=== PATIENT | male | born 1965 | race Asian ===

== ENCOUNTER 2018-06-26 19:16 | Emergency (ER) | payer MEDICAID ==
[~2018-06-26] VITALS: Ht 162.6 cm; Wt 59.0 kg
[~2018-06-26 19:16] MED LIST: LISI-186 PO
[2018-06-26] MEDS ORDERED: SODIUM CHLORIDE 0.9% 1,000 ML IV ONE (20:57)
[2018-06-26 21:53] LABS: BASOPHILS % 0.7 % (0.0-2.0); EOSINOPHILS % 6.6 % (0.0-5.0); HEMATOCRIT. 36.1 % (42.0-52.0); HEMOGLOBIN. 12.1 g/dL (14.0-18.0); MEAN CORPUSCULAR HEMOGLOBIN 32.4 pg (28.0-32.0); MEAN CORPUSCULAR VOLUME 97.1 fL (80.0-94.0); MEAN PLATELET VOLUME 7.5 fl (7.4-10.4); MONOCYTES % 5.9 % (2.0-8.0); NEUTROPHILS % 42.8 % (40.0-76.0); PLATELET 649 x1000/uL (130-400); RED BLOOD CELL COUNT 3.72 mill/uL (4.7-6.1); RED CELL DISTRIBUTION WIDTH 17.5 % (11.6-14.6)
[2018-06-26 21:58] LABS: CHLORIDE 110 mEq/L (98-107)
[2018-06-26 21:59] LABS: INR 1.1; PARTIAL THROMBOPLASTIN TIME 29.4 sec (23.4-31.0); PROTHROMBIN TIME 11.4 sec (9.1-11.1)
[2018-06-26 22:42] LABS: METHADONE URINE SCREEN NEGATIVE (NEGATIVE); OPIATES URINE SCREEN NEGATIVE (NEGATIVE); PHENCYCLIDINE URINE SCREEN NEGATIVE (NEGATIVE)
[2018-06-26 22:43] LABS: *AMPHETAMINES SCREEN URINE NEGATIVE (NEGATIVE); *BARBITURATES SCREEN URINE NEGATIVE (NEGATIVE); *BENZODIAZEPINES SCREEN URINE NEGATIVE (NEGATIVE); *COCAINE SCREEN URINE NEGATIVE (NEGATIVE); CANNABINOID URINE SCREEN NEGATIVE (NEGATIVE)
[2018-06-27 00:56] VITALS: BP 115/79
== END 2018-06-27 01:01 | disposition home or self-care (01) ==
LOC: ER 19:16
DX: J20.9 Acute bronchitis, unspecified (principal); I12.9 Hypertensive chronic kidney disease with stage 1 through stage 4 chronic kidney disease, or unspecified chronic kidney disease; N18.9 Chronic kidney disease, unspecified; E87.8 Other disorders of electrolyte and fluid balance, not elsewhere classified; D64.9 Anemia, unspecified; E46 Unspecified protein-calorie malnutrition; Z68.22 Body mass index [BMI] 22.0-22.9, adult
CPT/HCPCS: 36415; 71045; 80053; 80305; 83880; 84484; 85025; 85610; 85730; 93005; 96360; 96361; 99285; J7030; Z7610

== ENCOUNTER 2018-07-09 09:21 | Emergency (ER) | payer MEDICAID ==
[~2018-07-09] VITALS: Ht 172.7 cm; Wt 68.0 kg
[2018-07-09] MEDS ORDERED: KETOROLAC 30MG/ML VIAL IV STA (10:26)
[2018-07-09 11:42] VITALS: BP 129/88
== END 2018-07-09 12:04 | disposition home or self-care (01) ==
LOC: ER 10:55
DX: S20.212A Contusion of left front wall of thorax, initial encounter (principal); I10 Essential (primary) hypertension; F12.10 Cannabis abuse, uncomplicated; Y04.0XXA Assault by unarmed brawl or fight, initial encounter; Y93.89 Activity, other specified; Y92.89 Other specified places as the place of occurrence of the external cause
CPT/HCPCS: 71045; 93005; 96374; 99284; J1885; Z7610

== ENCOUNTER 2018-07-10 09:29 | Emergency (ER) | payer MEDICAID ==
[~2018-07-10] VITALS: Ht 172.7 cm; Wt 73.0 kg
[2018-07-10] MEDS ORDERED: SODIUM CHLORIDE 0.9% 1,000 ML IV ONE (10:02)
[2018-07-10] MEDS ORDERED: METHYLPREDNISOLONE SOD SUCC 125 MG/2 ML VIAL IV STA (10:02)
[2018-07-10] MEDS ORDERED: LEVOFLOXACIN 750MG PREMIX 150 ML IV ONE (10:15)
[2018-07-10] MEDS ORDERED: KETOROLAC 30MG/ML VIAL IV ONE (10:15)
[2018-07-10] MEDS ORDERED: IPRATROPIUM/ALBUTEROL 0.5-3(2.5)MG/3ML NEB HHN ONE (10:15)
[2018-07-10 10:21] LABS: BASOPHILS % 0.9 % (0.0-2.0); EOSINOPHILS % 2.1 % (0.0-5.0); HEMATOCRIT. 35.2 % (42.0-52.0); LYMPHOCYTES % 12.4 % (20.0-50.0); MEAN CORPUSCULAR HEMOGLOBIN 33.2 pg (28.0-32.0); MEAN CORPUSCULAR VOLUME 97.5 fL (80.0-94.0); MEAN PLATELET VOLUME 8.6 fl (7.4-10.4); MONOCYTES % 4.6 % (2.0-8.0); PLATELET 199 x1000/uL (130-400); RED BLOOD CELL COUNT 3.61 mill/uL (4.7-6.1); RED CELL DISTRIBUTION WIDTH 17.6 % (11.6-14.6)
[2018-07-10 10:29] LABS: PARTIAL THROMBOPLASTIN TIME 27.6 sec (23.4-31.0); PROTHROMBIN TIME 10.1 sec (9.1-11.1)
[2018-07-10 11:12] LABS: CHLORIDE 104 mEq/L (98-107)
[2018-07-10 11:22] LABS: ETHANOL BLOOD 288 mg/dL
[2018-07-10 12:45] VITALS: BP 131/89
== END 2018-07-10 12:48 | disposition home or self-care (01) ==
LOC: ER 09:56
DX: J40 Bronchitis, not specified as acute or chronic (principal); I10 Essential (primary) hypertension; F17.200 Nicotine dependence, unspecified, uncomplicated
CPT/HCPCS: 36415; 70450; 71045; 80053; 83880; 84484; 85025; 85610; 85730; 93005; 94640; 96365; 96366; 96375; 99285; G0482; J1885; J1956; J2930; J7030; J7620; Z7610

== ENCOUNTER 2018-08-03 07:25 | Emergency (ER) | payer MEDICAID ==
[~2018-08-03] VITALS: Ht 172.7 cm; Wt 76.2 kg
[2018-08-03 07:44] VITALS: BP 161/99
== END 2018-08-03 08:22 | disposition left against medical advice (07) ==
LOC: ER 07:25
DX: R42 Dizziness and giddiness (principal)
CPT/HCPCS: 99283

== ENCOUNTER 2018-08-18 17:58 | Emergency (ER) | payer MEDICAID ==
[~2018-08-18] VITALS: Ht 172.7 cm; Wt 76.5 kg
[2018-08-18 19:44] LABS: BASOPHILS % 0.6 % (0.0-2.0); EOSINOPHILS % 7.2 % (0.0-5.0); HEMATOCRIT. 37.8 % (42.0-52.0); HEMOGLOBIN. 12.8 g/dL (14.0-18.0); LYMPHOCYTES % 28.1 % (20.0-50.0); MEAN CORPUSCULAR HEMOGLOBIN 34.3 pg (28.0-32.0); MEAN CORPUSCULAR VOLUME 101.3 fL (80.0-94.0); MEAN PLATELET VOLUME 8.4 fl (7.4-10.4); NEUTROPHILS % 56.1 % (40.0-76.0); PLATELET 142 x1000/uL (130-400); RED BLOOD CELL COUNT 3.73 mill/uL (4.7-6.1); RED CELL DISTRIBUTION WIDTH 14.6 % (11.6-14.6)
[2018-08-18 19:49] LABS: CHLORIDE 100 mEq/L (98-107)
[2018-08-18 20:28] LABS: ETHANOL BLOOD 411 mg/dL
[2018-08-19 06:06] VITALS: BP 109/75
== END 2018-08-19 06:48 | disposition home or self-care (01) ==
LOC: ER 18:20
DX: M25.561 Pain in right knee (principal); M06.9 Rheumatoid arthritis, unspecified; R42 Dizziness and giddiness; F17.200 Nicotine dependence, unspecified, uncomplicated; Z79.899 Other long term (current) drug therapy; W01.0XXA Fall on same level from slipping, tripping and stumbling without subsequent striking against object, initial encounter; Y93.89 Activity, other specified; Y92.89 Other specified places as the place of occurrence of the external cause; Y99.8 Other external cause status
CPT/HCPCS: 36415; 71045; 73562; 80053; 83880; 84484; 85025; 99284; 99406; G0482

== ENCOUNTER 2019-02-25 20:16 | Inpatient (IN) | payer MEDICAID ==
[~2019-02-25] VITALS: Ht 165.1 cm; Wt 69.9 kg
[2019-02-26] VITALS (65 sets, daily range): BP systolic 77–153; BP diastolic 42–132
[2019-02-26] MEDS ORDERED: TETANUS, DIPHTHERIA, PERTUSSIS VAC/PF 0.5ML (>7YR OLD) IM ONE
[2019-02-26 00:50] LABS: CLARITY URINE TURBID (CLEAR); COLOR URINE DARK YELLOW (YELLOW); KETONES URINE TRACE (NEGATIVE); LEUKOCYTE ESTERASE URINE NEGATIVE (NEGATIVE); NITRITE URINE NEGATIVE (NEGATIVE); OCCULT BLOOD URINE 2+ (NEGATIVE); PROTEIN URINE 2+ (NEGATIVE); SPECIFIC GRAVITY URINE 1.015 (1.005-1.030)
[2019-02-26 01:00] LABS: *AMPHETAMINES SCREEN URINE NEGATIVE (NEGATIVE); *BARBITURATES SCREEN URINE NEGATIVE (NEGATIVE); *BENZODIAZEPINES SCREEN URINE NEGATIVE (NEGATIVE); *COCAINE SCREEN URINE NEGATIVE (NEGATIVE); METHADONE URINE SCREEN NEGATIVE (NEGATIVE); OPIATES URINE SCREEN NEGATIVE (NEGATIVE); PHENCYCLIDINE URINE SCREEN NEGATIVE (NEGATIVE)
[2019-02-26 01:01] LABS: CANNABINOID URINE SCREEN NEGATIVE (NEGATIVE)
[2019-02-26 01:05] LABS: CHLORIDE 98 mEq/L (98-107)
[2019-02-26 01:09] LABS: ETHANOL BLOOD 208 mg/dL
[2019-02-26] MEDS ORDERED: KCL 20MEQ/100ML PREMIX 100 ML IV ONE (01:15)
[2019-02-26] MEDS ORDERED: KCL 20MEQ/100ML PREMIX 100 ML IV NR ×2 (01:15→04:00)
[2019-02-26] MEDS ORDERED: SODIUM BICARBONATE 8.4% 1 MEQ/ML 50ML SYR IV NR (01:15)
[2019-02-26] MEDS ORDERED: SODIUM CHLORIDE 0.9% 1,000 ML IV ONE (01:15)
[2019-02-26] MEDS ORDERED: SODIUM CHLORIDE 0.9% 1,000 ML IV NR ×2 (01:15→01:30)
[2019-02-26] MEDS ORDERED: CEFEPIME 1,000 MG in DEXTROSE 5% WATER 50 ML IV NR (01:29)
[2019-02-26] MEDS ORDERED: VANCOMYCIN 1 G PREMIX 200 ML IV NR (01:30)
[2019-02-26] MEDS ORDERED: CALCIUM CHLORIDE 1,000 MG in DEXT 5% WATER 90 ML IV NR (01:30)
[2019-02-26] MEDS ORDERED: SODIUM BICARBONATE 150 MEQ in SODIUM CHLORIDE 0.45% 1,000 ML IV SCH (01:45)
[2019-02-26 02:38] LABS: HEMATOCRIT. 25.7 % (42.0-52.0); HEMOGLOBIN. 8.1 g/dL (14.0-18.0); MEAN CORPUSCULAR HEMOGLOBIN 32.3 pg (28.0-32.0); MEAN CORPUSCULAR VOLUME 101.8 fL (80.0-94.0); MEAN PLATELET VOLUME 9.3 fl (7.4-10.4); RED BLOOD CELL COUNT 2.52 mill/uL (4.7-6.1); RED CELL DISTRIBUTION WIDTH 20.8 % (11.6-14.6)
[2019-02-26 02:41] LABS: PLATELET 14 x1000/uL (130-400)
[2019-02-26 03:15] LABS: PLATELET ESTIMATE MARKEDLY DECREASED
[2019-02-26 03:55] LABS: BG BASE EXCESS -25.5 mmol/L (-2.0-2.0); BG CARBOXYHEMOGLOBIN 0.3 % (0.5-1.5); BG DEOXYHEMOGLOBIN 2.3 % (0.0-5.0); BG FRACTION INSPIRED OXYGEN 21; BG HCO3 ACT 3.7 mmol/L (22.0-26.0); BG METHEMOGLOBIN 0.3 % (0.0-1.5); BG OXYGEN SATURATION 97.7 % (92.0-98.5); BG OXYHEMOGLOBIN 97.1 % (94.0-97.0); BG PCO2 15.1 mmHg (35.0-45.0); BG PH 7.005 (7.350-7.450); BG PO2 140.4 mmHg (75.0-100.0); BG SAMPLE SITE RIGHT RADIAL; BG TOTAL HEMOGLOBIN 8.5 g/dL (12.0-18.0); BG VENT MODE ROOM AIR
[2019-02-26] MEDS ORDERED: NOREPINEPHRINE 4 MG in DEXT 5% WATER 246 ML IV ONE (04:15)
[2019-02-26] MEDS ORDERED: HYDROCORTISONE SOD SUCCINATE 100 MG/2 ML VIAL IV NR (04:30)
[2019-02-26] MEDS ORDERED: NOREPINEPHRINE 4MG/250ML PMX 250 ML IV PRN (04:30)
[2019-02-26 07:13] LABS: D-DIMER 0.67 mg/L FEU (<0.50); INR 2.5; PARTIAL THROMBOPLASTIN TIME 62.3 sec (23.4-31.0); PROTHROMBIN TIME 24.8 sec (9.6-11.0)
[2019-02-26] MEDS ORDERED: ONDANSETRON HCL 4MG/2ML INJ IV PRN (07:45)
[2019-02-26] MEDS ORDERED: SODIUM BICARBONATE 8.4% 1 MEQ/ML 50ML SYR IV SCH (07:45)
[2019-02-26] MEDS ORDERED: CALCIUM GLUCONATE 100MG/ML 10ML VIAL IV ONE ×2 (07:45→19:00)
[2019-02-26] MEDS ORDERED: THIAMINE HCL 100MG TABLET PO SCH (08:00)
[2019-02-26 08:37] LABS: CHLORIDE 103 mEq/L (98-107)
[2019-02-26 08:42] LABS: HEMATOCRIT. 28.4 % (42.0-52.0); HEMOGLOBIN. 9.5 g/dL (14.0-18.0); MEAN CORPUSCULAR HEMOGLOBIN 31.9 pg (28.0-32.0); MEAN CORPUSCULAR VOLUME 95.6 fL (80.0-94.0); MEAN PLATELET VOLUME 9.5 fl (7.4-10.4); RED BLOOD CELL COUNT 2.97 mill/uL (4.7-6.1); RED CELL DISTRIBUTION WIDTH 19.8 % (11.6-14.6)
[2019-02-26] MEDS ORDERED: CALCIUM GLUCONATE 1000 MG in DEXTROSE 5% WATER 100 ML IV SCH ×2 (09:00→20:00)
[2019-02-26] MEDS ORDERED: FOLIC ACID 1MG TABLET PO SCH (09:00)
[2019-02-26] MEDS ORDERED: FAMOTIDINE 20MG/2ML VIAL IV SCH (09:00)
[2019-02-26] MEDS ORDERED: LORAZEPAM 2MG/ML CPJ IV PRN (09:15)
[2019-02-26 09:17] LABS: PLATELET 12 x1000/uL (130-400)
[2019-02-26] MEDS: POTASSIUM CHLORIDE 20MEQ TABLET SR PO SCH ×2 (09:25→16:45)
[2019-02-26] MEDS: SODIUM BICARBONATE 150 MEQ in DEXTROSE 5% WATER 850 ML IV SCH ×2 (09:51→20:03)
[2019-02-26] MEDS ORDERED: PHYTONADIONE 10 MG/10 ML ORALSYR PO ONE (10:00)
[2019-02-26] MEDS: CEFTRIAXONE 1 G PREMIX 50 ML IV SCH (10:05)
[2019-02-26 10:09] LABS: BG BASE EXCESS -18.5 mmol/L (-2.0-2.0); BG CARBOXYHEMOGLOBIN 0.1 % (0.5-1.5); BG FRACTION INSPIRED OXYGEN 21; BG HCO3 ACT 6.9 mmol/L (22.0-26.0); BG METHEMOGLOBIN 0.5 % (0.0-1.5); BG OXYHEMOGLOBIN 97.4 % (94.0-97.0); BG PCO2 16.4 mmHg (35.0-45.0); BG PH 7.242 (7.350-7.450); BG PO2 123.5 mmHg (75.0-100.0); BG SAMPLE SITE LEFT RADIAL; BG TOTAL HEMOGLOBIN 8.6 g/dL (12.0-18.0); BG VENT MODE ROOM AIR
[2019-02-26] MEDS ORDERED: FOLIC ACID 1 MG, THIAMINE HCL 100 MG, MVI, ADULT NO.1 10 ML in DEXT 5%/0.45% NACL 1000M... IV SCH ×4 (11:00)
[2019-02-26] MEDS ORDERED: VANCOMYCIN 500 MG PREMIX 100 ML IV SCH (11:00)
[2019-02-26 12:32] LABS: NUCLEATED RED BLOOD CELLS 1 /100 WBC; PLATELET ESTIMATE MARKEDLY DECREASED
[2019-02-26] MEDS ORDERED: DEXTROSE 50% WATER 50ML SYRINGE IV PRN ×2 (13:45)
[2019-02-26] MEDS ORDERED: DIATR MEGLU/DIATRIZOATE SOLN 30ML PO SCH (14:00)
[2019-02-26 14:19] LABS: BG BASE EXCESS -14.4 mmol/L (-2.0-2.0); BG CARBOXYHEMOGLOBIN 0.1 % (0.5-1.5); BG DEOXYHEMOGLOBIN 3.2 % (0.0-5.0); BG FRACTION INSPIRED OXYGEN 21; BG HCO3 ACT 9.7 mmol/L (22.0-26.0); BG METHEMOGLOBIN 0.4 % (0.0-1.5); BG OXYGEN SATURATION 96.8 % (92.0-98.5); BG OXYHEMOGLOBIN 96.3 % (94.0-97.0); BG PCO2 18.1 mmHg (35.0-45.0); BG PH 7.346 (7.350-7.450); BG PO2 96.5 mmHg (75.0-100.0); BG SAMPLE SITE RIGHT BRACHIAL; BG TOTAL HEMOGLOBIN 7.9 g/dL (12.0-18.0); BG VENT MODE ROOM AIR
[2019-02-26] MEDS: THIAMINE HCL 100MG TABLET PO SCH (15:18)
[2019-02-26] MEDS: MULTIVITAMINS,THER W-MINERALS TABLET PO SCH (15:18)
[2019-02-26] MEDS: CHLORDIAZEPOXIDE 5 MG CAPSULE PO SCH ×2 (15:18→22:09)
[2019-02-26] MEDS: FOLIC ACID 1MG TABLET PO SCH (15:18)
[2019-02-26] MEDS ORDERED: MAGNESIUM SULFATE 3 GM in DEXT 5% WATER 96 ML IV NR (16:00)
[2019-02-26 16:06] LABS: HEPATITIS B SURFACE ANTIGEN NEGATIVE
[2019-02-26 16:35] LABS: HEPATITIS A AB IGM NEGATIVE (NEGATIVE)
[2019-02-26] MEDS ORDERED: POTASSIUM CHLORIDE 20MEQ TABLET SR PO NR ×2 (19:00→23:00)
[2019-02-26] MEDS: NOREPINEPHRINE 4 MG in DEXT 5% WATER 246 ML IV PRN (20:31)
[2019-02-26] MEDS ORDERED: MAGNESIUM 2 G PREMIX 50 ML IV SCH (23:00)
[2019-02-27] VITALS (91 sets, daily range): BP systolic 62–138; BP diastolic 25–105
[2019-02-27] MEDS: CHLORDIAZEPOXIDE 5 MG CAPSULE PO SCH ×3 (05:49→21:27)
[2019-02-27] MEDS: SODIUM BICARBONATE 150 MEQ in DEXTROSE 5% WATER 850 ML IV SCH (05:49)
[2019-02-27] MEDS: NOREPINEPHRINE 4 MG in DEXT 5% WATER 246 ML IV PRN ×2 (05:49→14:26)
[2019-02-27 05:51] LABS: HEMATOCRIT. 21.5 % (42.0-52.0); HEMOGLOBIN. 7.6 g/dL (14.0-18.0); MEAN CORPUSCULAR HEMOGLOBIN 32.7 pg (28.0-32.0); MEAN PLATELET VOLUME 8.7 fl (7.4-10.4); RED BLOOD CELL COUNT 2.34 mill/uL (4.7-6.1); RED CELL DISTRIBUTION WIDTH 18.4 % (11.6-14.6)
[2019-02-27] MEDS ORDERED: POTASSIUM CHLORIDE 20MEQ TABLET SR PO NR (07:00)
[2019-02-27 07:03] LABS: PLATELET 9 x1000/uL (130-400)
[2019-02-27] MEDS ORDERED: DIPHENOXYLATE/ATROPINE 2.5/0.025MG TABLET PO NR (08:00)
[2019-02-27 08:02] LABS: BG BASE EXCESS -2.1 mmol/L (-2.0-2.0); BG CARBOXYHEMOGLOBIN 0.9 % (0.5-1.5); BG DEOXYHEMOGLOBIN 4.9 % (0.0-5.0); BG FRACTION INSPIRED OXYGEN 21; BG HCO3 ACT 20.9 mmol/L (22.0-26.0); BG METHEMOGLOBIN 0.5 % (0.0-1.5); BG OXYHEMOGLOBIN 93.7 % (94.0-97.0); BG PCO2 28.2 mmHg (35.0-45.0); BG PH 7.487 (7.350-7.450); BG PO2 73.1 mmHg (75.0-100.0); BG SAMPLE SITE RIGHT BRACHIAL; BG TOTAL HEMOGLOBIN 7.7 g/dL (12.0-18.0); BG VENT MODE ROOM AIR
[2019-02-27] MEDS: FOLIC ACID 1MG TABLET PO SCH (08:09)
[2019-02-27] MEDS: MULTIVITAMINS,THER W-MINERALS TABLET PO SCH (08:09)
[2019-02-27] MEDS: THIAMINE HCL 100MG TABLET PO SCH (08:09)
[2019-02-27] MEDS: CEFTRIAXONE 1 G PREMIX 50 ML IV SCH (08:12)
[2019-02-27 08:23] LABS: PLATELET ESTIMATE MARKEDLY DECREASED
[2019-02-27] MEDS ORDERED: POTASSIUM CHLORIDE 20MEQ/PACKET PO NR (08:45)
[2019-02-27] MEDS ORDERED: MAGNESIUM 4 G PREMIX 100 ML IV ONE (08:45)
[2019-02-27] MEDS: POTASSIUM CHLORIDE 20MEQ TABLET SR PO SCH ×2 (09:36→16:21)
[2019-02-27] MEDS: POTASSIUM CHLORIDE IV SCH ×2 (10:23→21:11)
[2019-02-27] MEDS: NACL IV SCH ×2 (10:23→21:11)
[2019-02-27] MEDS: DEXT IV SCH ×2 (10:23→21:11)
[2019-02-27 10:55] LABS: INR 1.7; PROTHROMBIN TIME 17.6 sec (9.6-11.0)
[2019-02-27 11:08] LABS: BETA HYDROXYBUTYRATE < 0.1 mMol/L (0.0-0.3)
[2019-02-27 11:09] LABS: PHOSPHORUS 0.4 mg/dL (2.5-4.9)
[2019-02-27] MEDS ORDERED: METRONIDAZOLE 500 MG PREMIX 100 ML IV SCH (12:30)
[2019-02-27] MEDS ORDERED: POTASSIUM PHOS,M-BASIC-D-BASIC 30 MMOL in SODIUM CHLORIDE 0.9% 500 ML IV SCH (14:00)
[2019-02-27] MEDS ORDERED: VANCOMYCIN 750 MG PREMIX 150 ML IV NR (18:00)
[2019-02-27] MEDS ORDERED: CALCIUM GLUCONATE 1,000 MG in DEXT 5% WATER 90 ML IV NR (20:00)
[2019-02-27] MEDS: METRONIDAZOLE 500MG TABLET PO SCH (21:31)
[2019-02-28] VITALS (103 sets, daily range): BP systolic 76–144; BP diastolic 20–90
[2019-02-28] MEDS: METRONIDAZOLE 500MG TABLET PO SCH ×3 (05:21→22:06)
[2019-02-28] MEDS: POTASSIUM CHLORIDE IV SCH (05:21)
[2019-02-28] MEDS: DEXT IV SCH (05:21)
[2019-02-28] MEDS: NACL IV SCH (05:21)
[2019-02-28] MEDS: CHLORDIAZEPOXIDE 5 MG CAPSULE PO SCH ×3 (05:21→22:06)
[2019-02-28] MEDS: NOREPINEPHRINE 4 MG in DEXT 5% WATER 246 ML IV PRN (05:26)
[2019-02-28 05:46] LABS: MEAN CORPUSCULAR HEMOGLOBIN 31.9 pg (28.0-32.0); RED BLOOD CELL COUNT 2.01 mill/uL (4.7-6.1)
[2019-02-28 06:19] LABS: CHLORIDE 110 mEq/L (98-107)
[2019-02-28 06:37] LABS: HEMOGLOBIN. 6.4 g/dL (14.0-18.0)
[2019-02-28 06:39] LABS: HEMATOCRIT. 18.3 % (42.0-52.0); PLATELET 33 x1000/uL (130-400)
[2019-02-28 06:54] LABS: PHOSPHORUS 0.7 mg/dL (2.5-4.9)
[2019-02-28] MEDS ORDERED: CALCIUM GLUCONATE 100MG/ML 10ML VIAL IV ONE (07:15)
[2019-02-28] MEDS ORDERED: POTASSIUM CHLORIDE 20MEQ TABLET SR PO NR (08:00)
[2019-02-28] MEDS ORDERED: CALCIUM GLUCONATE 1000 MG in DEXTROSE 5% WATER 100 ML IV SCH (08:00)
[2019-02-28] MEDS: CHLORDIAZEPOXIDE 25MG CAPSULE PO PRN ×2 (08:15→15:05)
[2019-02-28] MEDS ORDERED: MAGNESIUM 4 G PREMIX 100 ML IV NR (08:30)
[2019-02-28] MEDS ORDERED: POTASSIUM PHOS M BASIC D BASIC IV SCH (09:00)
[2019-02-28] MEDS ORDERED: WATER IV SCH (09:00)
[2019-02-28] MEDS ORDERED: DEXT 5%/0.45% NACL KCL 40MEQ/L 1,000 ML IV ONE (09:00)
[2019-02-28] MEDS ORDERED: DEXT 5% IV SCH (09:00)
[2019-02-28] MEDS ORDERED: POTASSIUM PHOS,M-BASIC-D-BASIC 20 MMOL in DEXT 5% WATER 243.3333 ML IV SCH (09:00)
[2019-02-28] MEDS: CEFTRIAXONE 1 G PREMIX 50 ML IV SCH (09:09)
[2019-02-28] MEDS: MULTIVITAMINS,THER W-MINERALS TABLET PO SCH (09:09)
[2019-02-28] MEDS: FOLIC ACID 1MG TABLET PO SCH (09:09)
[2019-02-28] MEDS: THIAMINE HCL 100MG TABLET PO SCH (09:09)
[2019-02-28] MEDS: CHOLECALCIFEROL (D3) 1000 UNIT TABLET PO SCH (09:10)
[2019-02-28] MEDS: CALCIUM CARBONATE 500MG TABLET CHEW PO SCH (09:10)
[2019-02-28] MEDS: ALLOPURINOL 100 MG TABLET PO SCH (10:27)
[2019-02-28] MEDS ORDERED: LEVOFLOXACIN 500MG PREMIX 100 ML IV SCH (11:00)
[2019-02-28 11:38] LABS: PLATELET ESTIMATE MARKEDLY DECREASED
[2019-02-28] MEDS: POTASSIUM CHLORIDE 20MEQ TABLET SR PO SCH ×2 (12:22→17:36)
[2019-02-28] MEDS: NOREPINEPHRINE 8 MG in DEXT 5% WATER 242 ML IV PRN (12:33)
[2019-02-28 13:15] LABS: HIV SCREEN 4G Non Reactive (Non Reactive)
[2019-02-28] MEDS: DIPHENOXYLATE/ATROPINE 2.5/0.025MG TABLET PO PRN ×2 (17:36→22:10)
[2019-02-28] MEDS ORDERED: VANCOMYCIN 750 MG PREMIX 150 ML IV NR (18:00)
[2019-03-01] VITALS (78 sets, daily range): BP systolic 73–134; BP diastolic 41–80
[2019-03-01] MEDS: VANCOMYCIN HCL 1000 MG/20 ML ORAL PO SCH ×4 (00:46→18:52)
[2019-03-01] MEDS ORDERED: DEXTROSE 50% WATER 50ML SYRINGE IV PRN (05:00)
[2019-03-01 06:11] LABS: BASOPHILS % 0.3 % (0.0-2.0); EOSINOPHILS % 1.3 % (0.0-5.0); HEMATOCRIT. 22.3 % (42.0-52.0); HEMOGLOBIN. 7.7 g/dL (14.0-18.0); LYMPHOCYTES % 18.2 % (20.0-50.0); MEAN CORPUSCULAR HEMOGLOBIN 31.8 pg (28.0-32.0); MEAN CORPUSCULAR VOLUME 91.6 fL (80.0-94.0); MEAN PLATELET VOLUME 8.9 fl (7.4-10.4); MONOCYTES % 6.8 % (2.0-8.0); NEUTROPHILS % 73.4 % (40.0-76.0); RED BLOOD CELL COUNT 2.44 mill/uL (4.7-6.1); RED CELL DISTRIBUTION WIDTH 18.8 % (11.6-14.6)
[2019-03-01 06:25] LABS: CHLORIDE 110 mEq/L (98-107)
[2019-03-01] MEDS: BLOOD SUGAR DIAGNOSTIC STRIP TEST SCH ×4 (06:27→21:52)
[2019-03-01] MEDS: METRONIDAZOLE 500MG TABLET PO SCH ×3 (06:27→21:51)
[2019-03-01 06:36] LABS: PHOSPHORUS 1.5 mg/dL (2.5-4.9)
[2019-03-01 06:39] LABS: PLATELET 15 x1000/uL (130-400)
[2019-03-01 07:30] LABS: PLATELET ESTIMATE MARKEDLY DECREASED
[2019-03-01] MEDS ORDERED: CALCIUM GLUCONATE 100MG/ML 10ML VIAL IV ONE (08:15)
[2019-03-01] MEDS: MIDODRINE HCL 5MG TABLET PO SCH ×3 (08:46→21:52)
[2019-03-01] MEDS ORDERED: CALCIUM GLUCONATE 1,000 MG in DEXT 5% WATER 100 ML IV SCH (09:30)
[2019-03-01] MEDS: THIAMINE HCL 100MG TABLET PO SCH (09:37)
[2019-03-01] MEDS: CEFTRIAXONE 1 G PREMIX 50 ML IV SCH (09:37)
[2019-03-01] MEDS: CHOLECALCIFEROL (D3) 1000 UNIT TABLET PO SCH (09:37)
[2019-03-01] MEDS: FOLIC ACID 1MG TABLET PO SCH (09:38)
[2019-03-01] MEDS: LACTOBACILLUS GG CAPSULE PO SCH (09:38)
[2019-03-01] MEDS: ALLOPURINOL 100 MG TABLET PO SCH (09:38)
[2019-03-01] MEDS: CALCIUM CARBONATE 500MG TABLET CHEW PO SCH (09:38)
[2019-03-01] MEDS: POTASSIUM CHLORIDE INJ 40 MEQ in SODIUM CHLORIDE 0.45% 1,000 ML IV SCH (09:51)
[2019-03-01] MEDS ORDERED: MAGNESIUM 4 G PREMIX 100 ML IV SCH (10:00)
[2019-03-01] MEDS ORDERED: POTASSIUM PHOS,M-BASIC-D-BASIC 30 MMOL in SODIUM CHLORIDE 0.9% 500 ML IV SCH (10:00)
[2019-03-01] MEDS: MULTIVITAMINS,THER W-MINERALS TABLET PO SCH (10:52)
[2019-03-01] MEDS ORDERED: LEVOFLOXACIN 250MG PREMIX 50 ML IV SCH (11:00)
[2019-03-01] MEDS ORDERED: ACETAMINOPHEN 650MG/20.3ML UDC PO PRN (16:00)
[2019-03-02] VITALS (94 sets, daily range): BP systolic 76–159; BP diastolic 36–99
[2019-03-02] MEDS: POTASSIUM CHLORIDE INJ 40 MEQ in SODIUM CHLORIDE 0.45% 1,000 ML IV SCH (02:56)
[2019-03-02] MEDS: NOREPINEPHRINE 8 MG in DEXT 5% WATER 242 ML IV PRN (03:40)
[2019-03-02] MEDS: BLOOD SUGAR DIAGNOSTIC STRIP TEST SCH ×4 (05:46→20:53)
[2019-03-02] MEDS: MIDODRINE HCL 5MG TABLET PO SCH ×3 (05:47→20:53)
[2019-03-02] MEDS: METRONIDAZOLE 500MG TABLET PO SCH ×3 (05:47→20:53)
[2019-03-02] MEDS: VANCOMYCIN HCL 1000 MG/20 ML ORAL PO SCH ×4 (05:48→18:45)
[2019-03-02 05:52] LABS: HEMATOCRIT. 22.7 % (42.0-52.0); HEMOGLOBIN. 7.9 g/dL (14.0-18.0); MEAN CORPUSCULAR HEMOGLOBIN 31.8 pg (28.0-32.0); MEAN CORPUSCULAR VOLUME 91.8 fL (80.0-94.0); MEAN PLATELET VOLUME 8.4 fl (7.4-10.4); RED BLOOD CELL COUNT 2.47 mill/uL (4.7-6.1); RED CELL DISTRIBUTION WIDTH 18.1 % (11.6-14.6)
[2019-03-02 06:25] LABS: PHOSPHORUS 2.1 mg/dL (2.5-4.9)
[2019-03-02 06:35] LABS: PLATELET 18 x1000/uL (130-400)
[2019-03-02 08:33] LABS: PLATELET ESTIMATE MARKEDLY DECREASED
[2019-03-02] MEDS: FOLIC ACID 1MG TABLET PO SCH (08:59)
[2019-03-02] MEDS: CALCIUM CARBONATE 500MG TABLET CHEW PO SCH (08:59)
[2019-03-02] MEDS: LACTOBACILLUS GG CAPSULE PO SCH (08:59)
[2019-03-02] MEDS: ALLOPURINOL 100 MG TABLET PO SCH (08:59)
[2019-03-02] MEDS: THIAMINE HCL 100MG TABLET PO SCH (09:00)
[2019-03-02] MEDS: CHOLECALCIFEROL (D3) 1000 UNIT TABLET PO SCH (09:00)
[2019-03-02] MEDS: MULTIVITAMINS,THER W-MINERALS TABLET PO SCH (09:00)
[2019-03-02] MEDS: POTASSIUM ACETATE IV SCH (10:41)
[2019-03-02] MEDS: SODIUM CHLORIDE 0.45% IV SCH (10:41)
[2019-03-02] MEDS ORDERED: CALCIUM GLUCONATE 1,000 MG in DEXT 5% WATER 90 ML IV NR (11:00)
[2019-03-02] MEDS ORDERED: POTASSIUM PHOS,M-BASIC-D-BASIC 20 MMOL in DEXT 5% WATER 243.3333 ML IV ONE (11:00)
[2019-03-02] MEDS ORDERED: DIPHENOXYLATE/ATROPINE 2.5/0.025MG TABLET PO PRN (21:15)
[2019-03-03] VITALS (97 sets, daily range): BP systolic 75–161; BP diastolic 41–98
[2019-03-03] MEDS: VANCOMYCIN HCL 1000 MG/20 ML ORAL PO SCH ×5 (00:55→23:56)
[2019-03-03] MEDS: NOREPINEPHRINE 8 MG in DEXT 5% WATER 242 ML IV PRN ×2 (00:57→17:01)
[2019-03-03] MEDS: POTASSIUM ACETATE IV SCH ×2 (03:19→21:31)
[2019-03-03] MEDS: SODIUM CHLORIDE 0.45% IV SCH ×2 (03:19→21:31)
[2019-03-03 04:15] LABS: HEMOGLOBIN. 7.5 g/dL (14.0-18.0); MEAN CORPUSCULAR HEMOGLOBIN 32.1 pg (28.0-32.0); MEAN CORPUSCULAR VOLUME 90.3 fL (80.0-94.0); MEAN PLATELET VOLUME 8.9 fl (7.4-10.4); RED BLOOD CELL COUNT 2.33 mill/uL (4.7-6.1); RED CELL DISTRIBUTION WIDTH 17.5 % (11.6-14.6)
[2019-03-03 05:04] LABS: PHOSPHORUS 2.4 mg/dL (2.5-4.9)
[2019-03-03 05:32] LABS: PLATELET 26 x1000/uL (130-400)
[2019-03-03] MEDS: METRONIDAZOLE 500MG TABLET PO SCH ×3 (06:16→21:53)
[2019-03-03] MEDS: BLOOD SUGAR DIAGNOSTIC STRIP TEST SCH ×4 (06:17→21:00)
[2019-03-03] MEDS: MIDODRINE HCL 5MG TABLET PO SCH ×3 (06:17→21:52)
[2019-03-03 07:16] LABS: PLATELET ESTIMATE MARKEDLY DECREASED
[2019-03-03] MEDS ORDERED: MAGNESIUM 4 G PREMIX 100 ML IV SCH (09:00)
[2019-03-03] MEDS: THIAMINE HCL 100MG TABLET PO SCH (09:50)
[2019-03-03] MEDS: FOLIC ACID 1MG TABLET PO SCH (09:50)
[2019-03-03] MEDS: LACTOBACILLUS GG CAPSULE PO SCH (09:50)
[2019-03-03] MEDS: CHOLECALCIFEROL (D3) 1000 UNIT TABLET PO SCH (09:50)
[2019-03-03] MEDS: MULTIVITAMINS,THER W-MINERALS TABLET PO SCH (09:50)
[2019-03-03] MEDS: CALCIUM CARBONATE 500MG TABLET CHEW PO SCH (09:51)
[2019-03-03] MEDS: ALLOPURINOL 100 MG TABLET PO SCH (11:03)
[2019-03-03] MEDS ORDERED: SODIUM PHOS,M-BASIC-D-BASIC 15 MM in DEXT 5% WATER 245 ML IV NR (15:45)
[2019-03-03] MEDS ORDERED: DIPHENOXYLATE/ATROPINE 2.5/0.025MG TABLET PO NR (18:00)
[2019-03-04] VITALS (94 sets, daily range): BP systolic 72–131; BP diastolic 42–87
[2019-03-04 05:10] LABS: HEMOGLOBIN. 7.1 g/dL (14.0-18.0); MEAN CORPUSCULAR VOLUME 91.7 fL (80.0-94.0); MEAN PLATELET VOLUME 9.9 fl (7.4-10.4); RED BLOOD CELL COUNT 2.22 mill/uL (4.7-6.1); RED CELL DISTRIBUTION WIDTH 17.9 % (11.6-14.6)
[2019-03-04 05:21] LABS: PHOSPHORUS 2.3 mg/dL (2.5-4.9)
[2019-03-04] MEDS: METRONIDAZOLE 500MG TABLET PO SCH ×3 (05:37→21:55)
[2019-03-04] MEDS: VANCOMYCIN HCL 1000 MG/20 ML ORAL PO SCH ×3 (05:37→18:01)
[2019-03-04] MEDS: MIDODRINE HCL 5MG TABLET PO SCH ×3 (05:38→21:50)
[2019-03-04 06:19] LABS: HEMATOCRIT. 20.4 % (42.0-52.0)
[2019-03-04] MEDS ORDERED: SODIUM PHOS,M-BASIC-D-BASIC 30 MM in DEXT 5% WATER 500 ML IV NR (10:00)
[2019-03-04] MEDS ORDERED: MAGNESIUM 2 G PREMIX 50 ML IV NR (10:00)
[2019-03-04] MEDS: MULTIVITAMINS,THER W-MINERALS TABLET PO SCH (10:06)
[2019-03-04] MEDS: THIAMINE HCL 100MG TABLET PO SCH (10:06)
[2019-03-04] MEDS: LACTOBACILLUS GG CAPSULE PO SCH (10:06)
[2019-03-04] MEDS: ALLOPURINOL 100 MG TABLET PO SCH (10:06)
[2019-03-04] MEDS: FOLIC ACID 1MG TABLET PO SCH (10:06)
[2019-03-04] MEDS: CHOLECALCIFEROL (D3) 1000 UNIT TABLET PO SCH (10:06)
[2019-03-04] MEDS: CALCIUM CARBONATE 500MG TABLET CHEW PO SCH (10:07)
[2019-03-04] MEDS: SODIUM CHLORIDE 0.9% 1,000 ML IV SCH (10:25)
[2019-03-04] MEDS: BLOOD SUGAR DIAGNOSTIC STRIP TEST SCH ×3 (11:00→21:00)
[2019-03-04] MEDS ORDERED: DIPHENOXYLATE/ATROPINE 2.5/0.025MG TABLET PO NR (16:15)
[2019-03-04 18:22] LABS: PLATELET ESTIMATE MARKEDLY DECREASED
[2019-03-04 18:23] LABS: PLATELET 18 x1000/uL (130-400)
[2019-03-05] VITALS (88 sets, daily range): BP systolic 53–122; BP diastolic 32–81
[2019-03-05] MEDS: VANCOMYCIN HCL 1000 MG/20 ML ORAL PO SCH ×4 (01:33→17:31)
[2019-03-05] MEDS: MIDODRINE HCL 5MG TABLET PO SCH ×3 (05:48→21:24)
[2019-03-05] MEDS: NOREPINEPHRINE 8 MG in DEXT 5% WATER 242 ML IV PRN (05:48)
[2019-03-05] MEDS: METRONIDAZOLE 500MG TABLET PO SCH ×3 (05:50→21:24)
[2019-03-05] MEDS: BLOOD SUGAR DIAGNOSTIC STRIP TEST SCH ×4 (06:09→21:37)
[2019-03-05 06:44] LABS: CHLORIDE 104 mEq/L (98-107)
[2019-03-05 06:51] LABS: PHOSPHORUS 3.5 mg/dL (2.5-4.9)
[2019-03-05 06:53] LABS: HEMOGLOBIN. 7.2 g/dL (14.0-18.0); MEAN CORPUSCULAR HEMOGLOBIN 31.6 pg (28.0-32.0); MEAN CORPUSCULAR VOLUME 92.4 fL (80.0-94.0); MEAN PLATELET VOLUME 10.7 fl (7.4-10.4); PLATELET 60 x1000/uL (130-400); RED BLOOD CELL COUNT 2.26 mill/uL (4.7-6.1); RED CELL DISTRIBUTION WIDTH 17.7 % (11.6-14.6)
[2019-03-05 07:16] LABS: HEMATOCRIT. 20.9 % (42.0-52.0)
[2019-03-05 08:08] LABS: PLATELET ESTIMATE DECREASED
[2019-03-05] MEDS: LACTOBACILLUS GG CAPSULE PO SCH (09:22)
[2019-03-05] MEDS: MULTIVITAMINS,THER W-MINERALS TABLET PO SCH (09:22)
[2019-03-05] MEDS: CALCIUM CARBONATE 500MG TABLET CHEW PO SCH (09:22)
[2019-03-05] MEDS: ALLOPURINOL 100 MG TABLET PO SCH (09:22)
[2019-03-05] MEDS: SODIUM CHLORIDE 0.9% 1,000 ML IV SCH ×2 (09:22→21:37)
[2019-03-05] MEDS: CHOLECALCIFEROL (D3) 1000 UNIT TABLET PO SCH (09:22)
[2019-03-05] MEDS: FOLIC ACID 1MG TABLET PO SCH (09:22)
[2019-03-05] MEDS: THIAMINE HCL 100MG TABLET PO SCH (09:22)
[2019-03-05] MEDS ORDERED: ALBUMIN HUMAN 25GM/100ML (25%) IV SCH (10:00)
[2019-03-05] MEDS ORDERED: POTASSIUM CHLORIDE INJ 40 MEQ in DEXT 5% WATER 250 ML IV SCH (10:00)
[2019-03-05 13:15] LABS: PTT-LA 54.1 sec (0.0-51.9)
[2019-03-06] VITALS (97 sets, daily range): BP systolic 78–132; BP diastolic 46–90
[2019-03-06] MEDS: VANCOMYCIN HCL 1000 MG/20 ML ORAL PO SCH ×4 (00:36→18:00)
[2019-03-06] MEDS: SODIUM CHLORIDE 0.9% 1,000 ML IV SCH (01:00)
[2019-03-06] MEDS: METRONIDAZOLE 500MG TABLET PO SCH ×3 (05:46→21:51)
[2019-03-06] MEDS: MIDODRINE HCL 5MG TABLET PO SCH ×3 (05:47→21:50)
[2019-03-06 05:49] LABS: MEAN CORPUSCULAR HEMOGLOBIN 31.5 pg (28.0-32.0); MEAN CORPUSCULAR VOLUME 93.7 fL (80.0-94.0); MEAN PLATELET VOLUME 10.3 fl (7.4-10.4); PLATELET 54 x1000/uL (130-400); RED CELL DISTRIBUTION WIDTH 17.3 % (11.6-14.6)
[2019-03-06 05:52] LABS: HEMATOCRIT. 19.7 % (42.0-52.0); HEMOGLOBIN. 6.6 g/dL (14.0-18.0)
[2019-03-06 05:59] LABS: CHLORIDE 108 mEq/L (98-107)
[2019-03-06 06:09] LABS: PHOSPHORUS 2.7 mg/dL (2.5-4.9)
[2019-03-06] MEDS: BLOOD SUGAR DIAGNOSTIC STRIP TEST SCH ×4 (06:37→21:41)
[2019-03-06] MEDS: ALLOPURINOL 100 MG TABLET PO SCH (08:21)
[2019-03-06] MEDS: LACTOBACILLUS GG CAPSULE PO SCH (08:21)
[2019-03-06] MEDS: CALCIUM CARBONATE 500MG TABLET CHEW PO SCH (08:21)
[2019-03-06] MEDS: CHOLECALCIFEROL (D3) 1000 UNIT TABLET PO SCH (08:21)
[2019-03-06] MEDS: FOLIC ACID 1MG TABLET PO SCH (08:21)
[2019-03-06] MEDS: MULTIVITAMINS,THER W-MINERALS TABLET PO SCH (08:21)
[2019-03-06] MEDS: THIAMINE HCL 100MG TABLET PO SCH (09:00)
[2019-03-06 09:11] LABS: PTT-LA INCUB MIX 52.9 sec (0.0-48.9); PTT-LA MIX 45.1 sec (0.0-48.9)
[2019-03-06] MEDS: NOREPINEPHRINE 8 MG in DEXT 5% WATER 242 ML IV PRN (09:14)
[2019-03-06] MEDS ORDERED: MAGNESIUM 2 G PREMIX 50 ML IV NR (10:00)
[2019-03-06 10:06] LABS: HEXAGONAL PHASE PHOSPHOLIPID 0 sec (0-11)
[2019-03-06 10:50] LABS: NUCLEATED RED BLOOD CELLS 1 /100 WBC; PLATELET ESTIMATE DECREASED
[2019-03-06] MEDS: POTASSIUM ACETATE IV SCH (10:52)
[2019-03-06] MEDS: SODIUM CHLORIDE 0.9% IV SCH (10:52)
[2019-03-06 13:09] LABS: LUPUS ANTICOAG INTERPRETATION Comment: (.)
[2019-03-06 14:56] LABS: PROTHROMBIN TIME 19.6 sec (9.6-11.0)
[2019-03-07] VITALS (49 sets, daily range): BP systolic 77–133; BP diastolic 36–88
[2019-03-07] MEDS: POTASSIUM ACETATE IV SCH ×2 (00:45→15:05)
[2019-03-07] MEDS: DIPHENOXYLATE/ATROPINE 2.5/0.025MG TABLET PO SCH ×3 (00:45→17:13)
[2019-03-07] MEDS: VANCOMYCIN HCL 1000 MG/20 ML ORAL PO SCH ×4 (00:45→19:09)
[2019-03-07] MEDS: SODIUM CHLORIDE 0.9% IV SCH ×2 (00:45→15:05)
[2019-03-07 05:04] LABS: HEMATOCRIT. 25.2 % (42.0-52.0); HEMOGLOBIN. 8.6 g/dL (14.0-18.0); MEAN CORPUSCULAR HEMOGLOBIN 32.2 pg (28.0-32.0); MEAN CORPUSCULAR VOLUME 93.9 fL (80.0-94.0); MEAN PLATELET VOLUME 10.3 fl (7.4-10.4); PLATELET 59 x1000/uL (130-400); RED BLOOD CELL COUNT 2.68 mill/uL (4.7-6.1); RED CELL DISTRIBUTION WIDTH 16.7 % (11.6-14.6)
[2019-03-07 05:13] LABS: CHLORIDE 110 mEq/L (98-107)
[2019-03-07] MEDS: MIDODRINE HCL 5MG TABLET PO SCH ×3 (06:18→21:50)
[2019-03-07] MEDS: BLOOD SUGAR DIAGNOSTIC STRIP TEST SCH ×4 (06:58→20:39)
[2019-03-07] MEDS: MULTIVITAMINS,THER W-MINERALS TABLET PO SCH (08:49)
[2019-03-07] MEDS: FOLIC ACID 1MG TABLET PO SCH (08:49)
[2019-03-07] MEDS: CHOLECALCIFEROL (D3) 1000 UNIT TABLET PO SCH (08:49)
[2019-03-07] MEDS: THIAMINE HCL 100MG TABLET PO SCH (08:49)
[2019-03-07] MEDS: LACTOBACILLUS GG CAPSULE PO SCH (08:49)
[2019-03-07] MEDS: CALCIUM CARBONATE 500MG TABLET CHEW PO SCH (08:50)
[2019-03-07] MEDS: ALLOPURINOL 100 MG TABLET PO SCH (08:51)
[2019-03-07 10:36] LABS: NUCLEATED RED BLOOD CELLS 1 /100 WBC; PLATELET ESTIMATE MARKEDLY DECREASED
[2019-03-07] MEDS ORDERED: MAGNESIUM 2 G PREMIX 50 ML IV SCH (12:00)
[2019-03-07] MEDS ORDERED: MAGNESIUM 2 G PREMIX 50 ML IV NR (12:00)
[2019-03-07] MEDS ORDERED: POTASSIUM PHOS,M-BASIC-D-BASIC 30 MMOL in DEXT 5% WATER 500 ML IV NR (12:00)
[2019-03-07 18:19] LABS: TOTAL IRON BINDING CAPACITY 67 ug/dL (250-450)
[2019-03-07 19:13] LABS: CYC CITRULLINATED PEP IgG/IgA 8 units (0-19)
[2019-03-08] VITALS: BP 112/69
[2019-03-08] MEDS: VANCOMYCIN HCL 1000 MG/20 ML ORAL PO SCH (00:46)
[2019-03-08 04:00] VITALS: BP 114/70
[2019-03-08] MEDS: MIDODRINE HCL 5MG TABLET PO SCH ×3 (06:01→18:35)
[2019-03-08 07:36] LABS: HEMATOCRIT. 23.2 % (42.0-52.0); HEMOGLOBIN. 7.9 g/dL (14.0-18.0); MEAN CORPUSCULAR HEMOGLOBIN 32.6 pg (28.0-32.0); MEAN CORPUSCULAR VOLUME 95.8 fL (80.0-94.0); MEAN PLATELET VOLUME 10.5 fl (7.4-10.4); PLATELET 71 x1000/uL (130-400); RED BLOOD CELL COUNT 2.42 mill/uL (4.7-6.1); RED CELL DISTRIBUTION WIDTH 17.3 % (11.6-14.6)
[2019-03-08 08:00] VITALS: BP 104/70
[2019-03-08 08:06] LABS: CHLORIDE 110 mEq/L (98-107)
[2019-03-08 08:21] LABS: PHOSPHORUS 4.2 mg/dL (2.5-4.9)
[2019-03-08] MEDS: THIAMINE HCL 100MG TABLET PO SCH (09:00)
[2019-03-08] MEDS: LACTOBACILLUS GG CAPSULE PO SCH (09:00)
[2019-03-08] MEDS: DIPHENOXYLATE/ATROPINE 2.5/0.025MG TABLET PO SCH ×2 (09:00→18:35)
[2019-03-08] MEDS: MULTIVITAMINS,THER W-MINERALS TABLET PO SCH (09:00)
[2019-03-08] MEDS: ALLOPURINOL 100 MG TABLET PO SCH (09:00)
[2019-03-08] MEDS: CALCIUM CARBONATE 500MG TABLET CHEW PO SCH (09:00)
[2019-03-08] MEDS: CHOLECALCIFEROL (D3) 1000 UNIT TABLET PO SCH (09:00)
[2019-03-08] MEDS: FOLIC ACID 1MG TABLET PO SCH (09:00)
[2019-03-08 12:00] VITALS: BP 102/67
[2019-03-08] MEDS: SODIUM CHLORIDE 0.9% IV SCH (12:00)
[2019-03-08] MEDS: POTASSIUM ACETATE IV SCH (12:00)
[2019-03-08 13:45] LABS: PLATELET ESTIMATE DECREASED
[2019-03-08 15:59] VITALS: BP 110/66
[2019-03-08] MEDS ORDERED: MIDAZOLAM HCL 2 MG/2 ML VIAL ONE (16:40)
[2019-03-08] MEDS ORDERED: PROPOFOL 200MG/20ML VIAL IV ONE (16:40)
[2019-03-08] MEDS ORDERED: FENTANYL CITRATE/PF 50MCG/ML 2ML VIAL ONE (16:40)
[2019-03-08] MEDS ORDERED: DIPHENHYDRAMINE 50MG/ML VIAL ONE (16:40)
[2019-03-08] MEDS ORDERED: LIDOCAINE HCL/PF 1% 10 MG/ML 5ML VIAL ONE (16:44)
[2019-03-08] MEDS ORDERED: THIA100T72 PO (16:50)
[2019-03-08] MEDS ORDERED: LACT1CAP77 PO (16:50)
[2019-03-08] MEDS ORDERED: CHOL100022 PO (16:50)
[2019-03-08] MEDS ORDERED: MIDO5TAB PO (16:50)
[2019-03-08] MEDS ORDERED: ALLO100T PO (16:50)
[2019-03-08] MEDS ORDERED: FOLI-43 PO (16:50)
[2019-03-08] MEDS ORDERED: CALC500T35 PO (16:50)
[2019-03-08 19:53] VITALS: BP 115/78
[2019-03-09] VITALS: BP 116/77
[2019-03-09 04:00] VITALS: BP 117/78
[2019-03-09 05:29] LABS: CHLORIDE 114 mEq/L (98-107)
[2019-03-09 05:35] LABS: PHOSPHORUS 4.4 mg/dL (2.5-4.9)
[2019-03-09 05:38] LABS: HEMATOCRIT. 21.3 % (42.0-52.0); HEMOGLOBIN. 7.2 g/dL (14.0-18.0); MEAN CORPUSCULAR HEMOGLOBIN 32.9 pg (28.0-32.0); MEAN CORPUSCULAR VOLUME 97.3 fL (80.0-94.0); MEAN PLATELET VOLUME 10.3 fl (7.4-10.4); PLATELET 95 x1000/uL (130-400); RED BLOOD CELL COUNT 2.19 mill/uL (4.7-6.1); RED CELL DISTRIBUTION WIDTH 16.3 % (11.6-14.6)
[2019-03-09] MEDS: MULTIVITAMINS,THER W-MINERALS TABLET PO SCH (08:00)
[2019-03-09] MEDS: THIAMINE HCL 100MG TABLET PO SCH (08:02)
[2019-03-09] MEDS: FOLIC ACID 1MG TABLET PO SCH (08:02)
[2019-03-09] MEDS: LACTOBACILLUS GG CAPSULE PO SCH (08:02)
[2019-03-09] MEDS: DIPHENOXYLATE/ATROPINE 2.5/0.025MG TABLET PO SCH (08:02)
[2019-03-09] MEDS: ALLOPURINOL 100 MG TABLET PO SCH (08:02)
[2019-03-09] MEDS: CALCIUM CARBONATE 500MG TABLET CHEW PO SCH (08:02)
[2019-03-09] MEDS: CHOLECALCIFEROL (D3) 1000 UNIT TABLET PO SCH (08:03)
[2019-03-09 08:08] VITALS: BP 114/68
[2019-03-09] MEDS: MIDODRINE HCL 5MG TABLET PO SCH (09:00)
[2019-03-09] MEDS ORDERED: OMEPRAZOLE 20MG CAPSULE EXTENDED RELEASE PO SCH (09:15)
[2019-03-09 09:56] LABS: NUCLEATED RED BLOOD CELLS 1 /100 WBC; PLATELET ESTIMATE SLIGHTLY DECREASED
[2019-03-09] MEDS ORDERED: SODIUM CHLORIDE 0.45% 1,000 ML IV SCH (10:00)
[2019-03-09] MEDS ORDERED: MIDODRINE HCL 5MG TABLET PO SCH (12:00)
[2019-03-09 12:07] VITALS: BP 131/81
[2019-03-09] MEDS ORDERED: VANC125C5 MT (13:28)
[2019-03-09] MEDS ORDERED: SODIUM CHLORIDE 0.9% 1000ML BAG (SEPSIS BOLUS) IV SCH (14:30)
[2019-03-09] MEDS ORDERED: SODIUM CHLORIDE 0.9% 500 ML IV ONE (14:30)
[2019-03-09 15:38] VITALS: BP 122/74
[2019-03-09 15:53] VITALS: BP 113/73
[2019-03-09] MEDS ORDERED: VANCOMYCIN HCL 1000 MG/20 ML ORAL PO SCH (18:00)
[2019-03-22] MEDS ORDERED: SODIUM BICARBONATE 150 MEQ in DEXTROSE 5% WATER 1,000 ML IV SCH (07:29)
== END 2019-03-09 18:00 | disposition home health service (06) | DRG 720 ==
LOC: ER 20:16 → EDBEDREQTM 02-26 02:02 → EDBEDREQSVC 02-26 02:02 → EDBEDREQ 02-26 02:02 → ENRESERV 02-26 02:49 → MICUNO 02-26 06:02 → MICUSO 03-03 02:21 → MICUNO 03-04 07:41 → MICUSO 03-05 17:41 → 6WST 03-07 11:10
PROVIDERS: ADMIT Internal Medicine; ATTEND Family Medicine
PROC: 30233R1 Transfusion of Nonautologous Platelets into Peripheral Vein, Percutaneous Approach (ICD-10-PCS; principal; 2019-02-26)
PROC: 06HY33Z Insertion of Infusion Device into Lower Vein, Percutaneous Approach (ICD-10-PCS; 2019-02-26)
PROC: B54BZZA Ultrasonography of Right Lower Extremity Veins, Guidance (ICD-10-PCS; 2019-02-26)
PROC: 30233N1 Transfusion of Nonautologous Red Blood Cells into Peripheral Vein, Percutaneous Approach (ICD-10-PCS; 2019-02-28)
PROC: 0DB68ZX Excision of Stomach, Via Natural or Artificial Opening Endoscopic, Diagnostic (ICD-10-PCS; 2019-03-08)
DX: A41.9 Sepsis, unspecified organism (principal); J96.00 Acute respiratory failure, unspecified whether with hypoxia or hypercapnia; N17.0 Acute kidney failure with tubular necrosis; R65.21 Severe sepsis with septic shock; K29.01 Acute gastritis with bleeding; G92 Toxic encephalopathy; A04.72 Enterocolitis due to Clostridium difficile, not specified as recurrent; N18.3 Chronic kidney disease, stage 3 (moderate); D68.4 Acquired coagulation factor deficiency; D69.59 Other secondary thrombocytopenia; T51.0X1A Toxic effect of ethanol, accidental (unintentional), initial encounter; E87.2 Acidosis; E83.51 Hypocalcemia; E87.1 Hypo-osmolality and hyponatremia; F10.229 Alcohol dependence with intoxication, unspecified; F17.210 Nicotine dependence, cigarettes, uncomplicated; I12.9 Hypertensive chronic kidney disease with stage 1 through stage 4 chronic kidney disease, or unspecified chronic kidney disease; K22.10 Ulcer of esophagus without bleeding; K44.9 Diaphragmatic hernia without obstruction or gangrene; K29.80 Duodenitis without bleeding; D75.89 Other specified diseases of blood and blood-forming organs; E11.22 Type 2 diabetes mellitus with diabetic chronic kidney disease; E87.6 Hypokalemia; D69.6 Thrombocytopenia, unspecified; D64.9 Anemia, unspecified; M10.9 Gout, unspecified; Z60.2 Problems related to living alone; Y90.7 Blood alcohol level of 200-239 mg/100 ml; E86.0 Dehydration; E11.65 Type 2 diabetes mellitus with hyperglycemia; S01.111A Laceration without foreign body of right eyelid and periocular area, initial encounter; M19.90 Unspecified osteoarthritis, unspecified site; K86.1 Other chronic pancreatitis; K70.31 Alcoholic cirrhosis of liver with ascites; K76.0 Fatty (change of) liver, not elsewhere classified; K70.11 Alcoholic hepatitis with ascites; E83.42 Hypomagnesemia; E83.39 Other disorders of phosphorus metabolism; J44.9 Chronic obstructive pulmonary disease, unspecified; R91.1 Solitary pulmonary nodule; N39.0 Urinary tract infection, site not specified; K21.9 Gastro-esophageal reflux disease without esophagitis; E53.8 Deficiency of other specified B group vitamins; S51.011A Laceration without foreign body of right elbow, initial encounter; N28.1 Cyst of kidney, acquired; W18.09XA Striking against other object with subsequent fall, initial encounter; Z59.0 Homelessness; Z82.49 Family history of ischemic heart disease and other diseases of the circulatory system; Y92.89 Other specified places as the place of occurrence of the external cause; Y93.89 Activity, other specified; Y99.8 Other external cause status; Z79.899 Other long term (current) drug therapy
CPT/HCPCS: 36415; 36556; 36600; 71045; 74176; 76700; 80048; 80202; 80305; 80320; 82010; 82140; 82270; 82306; 82330; 82375; 82533; 82728; 82805; 82962; 83036; 83540; 83550; 83605; 83615; 83735; 84100; 84134; 84145; 84550; 85049; 85362; 85379; 85384; 85613; 85732; 86038; 86200; 86431; 86705; 86709; 86803; 86850; 86900; 86920; 87015; 87045; 87340; 87389; 87427; 87449; 87493; 88305; 88313; 90715; 93005; 93970; 96365; 96367; 97110; 97116; 97162; 97530; 99291; A6261; J0610; J0692; J0696; J1200; J1956; J2250; J2704; J3010; J3370; J3411; J3430; J3475; J3480; J3490; J7030; J7040; J7042; J7050; J7060; J7070; P9016; P9021; P9034; P9047; Q9963; A4315; G0480

== ENCOUNTER 2019-03-17 10:10 | Inpatient (IN) | payer MEDICAID ==
[~2019-03-17] VITALS: Ht 172.7 cm; Wt 61.7 kg
[~2019-03-17 10:10] MED LIST changes: +ALLO100T PO; +CALC500T35 PO; +CHOL100022 PO; +FOLI-43 PO; +LACT1CAP77 PO; +MIDO5TAB PO; +THIA100T72 PO; +VANC125C5 MT
[2019-03-17] MEDS ORDERED: SODIUM CHLORIDE 0.9% 1,000 ML IV ONE (10:28)
[2019-03-17 11:16] LABS: BASOPHILS % 0.9 % (0.0-2.0); EOSINOPHILS % 3.2 % (0.0-5.0); LYMPHOCYTES % 27.9 % (20.0-50.0); MEAN CORPUSCULAR HEMOGLOBIN 34.9 pg (28.0-32.0); MEAN CORPUSCULAR VOLUME 104.3 fL (80.0-94.0); MEAN PLATELET VOLUME 10.2 fl (7.4-10.4); MONOCYTES % 7.8 % (2.0-8.0); NEUTROPHILS % 60.2 % (40.0-76.0); PLATELET 178 x1000/uL (130-400); RED BLOOD CELL COUNT 1.99 mill/uL (4.7-6.1); RED CELL DISTRIBUTION WIDTH 22.2 % (11.6-14.6)
[2019-03-17] MEDS ORDERED: DEXTROSE 50% WATER 50ML SYRINGE IV ONE ×2 (11:19→14:15)
[2019-03-17 11:22] LABS: CHLORIDE 113 mEq/L (98-107)
[2019-03-17 11:27] LABS: HEMATOCRIT. 20.8 % (42.0-52.0)
[2019-03-17 11:28] LABS: INR 1.6; PROTHROMBIN TIME 16.2 sec (9.6-11.0)
[2019-03-17 11:57] LABS: PLATELET ESTIMATE NORMAL
[2019-03-17 13:08] LABS: CLARITY URINE CLEAR (CLEAR); COLOR URINE YELLOW (YELLOW); KETONES URINE NEGATIVE (NEGATIVE); LEUKOCYTE ESTERASE URINE NEGATIVE (NEGATIVE); NITRITE URINE NEGATIVE (NEGATIVE); OCCULT BLOOD URINE NEGATIVE (NEGATIVE); PH URINE 5.5 (4.5-8.0); PROTEIN URINE TRACE (NEGATIVE); SPECIFIC GRAVITY URINE 1.006 (1.005-1.030); UROBILINOGEN URINE 0.2 E.U./dL (0.2-1.0)
[2019-03-17] MEDS ORDERED: FAMOTIDINE 20MG/2ML VIAL IV NR (13:30)
[2019-03-17] MEDS ORDERED: FOLIC ACID 1 MG, THIAMINE HCL 100 MG, MVI, ADULT NO.1 10 ML in DEXTROSE 5% WATER 1,000 ML IV NR ×4 (13:30)
[2019-03-17 14:08] LABS: *AMPHETAMINES SCREEN URINE NEGATIVE (NEGATIVE); *COCAINE SCREEN URINE NEGATIVE (NEGATIVE); PHENCYCLIDINE URINE SCREEN NEGATIVE (NEGATIVE)
[2019-03-17 14:10] LABS: OPIATES URINE SCREEN NEGATIVE (NEGATIVE)
[2019-03-17 14:11] LABS: CANNABINOID URINE SCREEN NEGATIVE (NEGATIVE); METHADONE URINE SCREEN NEGATIVE (NEGATIVE)
[2019-03-17 14:14] LABS: *BENZODIAZEPINES SCREEN URINE NEGATIVE (NEGATIVE)
[2019-03-17 14:15] LABS: *BARBITURATES SCREEN URINE NEGATIVE (NEGATIVE)
[2019-03-17] MEDS ORDERED: POTASSIUM CHLORIDE 20MEQ TABLET SR PO NR (14:30)
[2019-03-17] MEDS: [UNRECOGNIZED DRUG - REMARK] IV SCH ×10 (15:14→18:00)
[2019-03-17 15:20] LABS: PHOSPHORUS 3.4 mg/dL (2.5-4.9)
[2019-03-17] MEDS ORDERED: ALLOPURINOL 100 MG TABLET PO SCH (15:30)
[2019-03-17 16:27] VITALS: BP 105/68
[2019-03-17 17:27] VITALS: BP 105/68
[2019-03-17] MEDS: DIPHENOXYLATE/ATROPINE 2.5/0.025MG TABLET PO SCH (18:00)
[2019-03-17] MEDS ORDERED: PNEUMOCOCCAL 23-VAL P-SAC VAC 0.5 ML IM ONE (18:45)
[2019-03-17] MEDS: VANCOMYCIN HCL 1000 MG/20 ML ORAL PO SCH (19:33)
[2019-03-17 20:00] VITALS: BP 96/57
[2019-03-17] MEDS ORDERED: MAGNESIUM 4 G PREMIX 100 ML IV NR (20:00)
[2019-03-17] MEDS: CHLORDIAZEPOXIDE 25MG CAPSULE PO SCH (22:16)
[2019-03-18] VITALS (14 sets, daily range): BP systolic 86–110; BP diastolic 51–68
[2019-03-18] MEDS: VANCOMYCIN HCL 1000 MG/20 ML ORAL PO SCH ×4 (01:03→18:51)
[2019-03-18] MEDS: DIPHENOXYLATE/ATROPINE 2.5/0.025MG TABLET PO SCH ×3 (01:59→17:05)
[2019-03-18] MEDS: CHLORDIAZEPOXIDE 25MG CAPSULE PO SCH ×3 (06:24→22:28)
[2019-03-18 07:11] LABS: EOSINOPHILS % 4.6 % (0.0-5.0); LYMPHOCYTES % 22.2 % (20.0-50.0); MEAN CORPUSCULAR HEMOGLOBIN 34.6 pg (28.0-32.0); MEAN CORPUSCULAR VOLUME 104.3 fL (80.0-94.0); MEAN PLATELET VOLUME 10.4 fl (7.4-10.4); MONOCYTES % 8.4 % (2.0-8.0); NEUTROPHILS % 63.8 % (40.0-76.0); PLATELET 133 x1000/uL (130-400); RED BLOOD CELL COUNT 1.54 mill/uL (4.7-6.1)
[2019-03-18 07:41] LABS: CHLORIDE 116 mEq/L (98-107)
[2019-03-18 07:48] LABS: PHOSPHORUS 3.2 mg/dL (2.5-4.9)
[2019-03-18 07:52] LABS: HEMOGLOBIN. 5.3 g/dL (14.0-18.0)
[2019-03-18 07:53] LABS: HEMATOCRIT. 16.1 % (42.0-52.0)
[2019-03-18] MEDS: ALLOPURINOL 100 MG TABLET PO SCH (10:59)
[2019-03-18] MEDS: FOLIC ACID 1MG TABLET PO SCH (10:59)
[2019-03-18] MEDS: THIAMINE HCL 100MG TABLET PO SCH (10:59)
[2019-03-18] MEDS: CITRIC ACID/SODIUM CITRATE SOLN 30ML UDC PO SCH ×2 (15:18→17:05)
[2019-03-18] MEDS: OMEPRAZOLE 20MG CAPSULE EXTENDED RELEASE PO SCH ×2 (17:05→22:28)
[2019-03-18 21:15] LABS: HEMATOCRIT 25.6 % (42.0-52.0); HEMOGLOBIN 8.7 g/dL (14.0-18.0)
[2019-03-18 22:02] LABS: FOLIC ACID (FOLATE) SERUM 19.4 ng/mL (>5.38)
[2019-03-19] VITALS: BP_SYST 102; BP_SYST 106; BP_DIAS 69; BP_DIAS 70
[2019-03-19 00:27] LABS: HEMOGLOBIN 8.6 g/dL (14.0-18.0)
[2019-03-19] MEDS: VANCOMYCIN HCL 1000 MG/20 ML ORAL PO SCH ×5 (00:57→23:26)
[2019-03-19] MEDS: DIPHENOXYLATE/ATROPINE 2.5/0.025MG TABLET PO SCH ×3 (02:35→17:23)
[2019-03-19 04:00] VITALS: BP 90/53
[2019-03-19] MEDS: [UNRECOGNIZED DRUG - REMARK] IV SCH ×10 (04:14→18:26)
[2019-03-19] MEDS: OMEPRAZOLE 20MG CAPSULE EXTENDED RELEASE PO SCH ×2 (06:07→21:59)
[2019-03-19] MEDS: CHLORDIAZEPOXIDE 25MG CAPSULE PO SCH ×3 (06:07→21:59)
[2019-03-19 06:56] LABS: BASOPHILS % 0.7 % (0.0-2.0); EOSINOPHILS % 5.1 % (0.0-5.0); HEMATOCRIT. 26.1 % (42.0-52.0); HEMOGLOBIN. 8.8 g/dL (14.0-18.0); LYMPHOCYTES % 21.5 % (20.0-50.0); MEAN CORPUSCULAR HEMOGLOBIN 33.7 pg (28.0-32.0); MEAN CORPUSCULAR VOLUME 99.4 fL (80.0-94.0); MEAN PLATELET VOLUME 10.2 fl (7.4-10.4); MONOCYTES % 8.6 % (2.0-8.0); NEUTROPHILS % 64.1 % (40.0-76.0); PLATELET 143 x1000/uL (130-400); RED BLOOD CELL COUNT 2.62 mill/uL (4.7-6.1); RED CELL DISTRIBUTION WIDTH 20.6 % (11.6-14.6)
[2019-03-19 07:04] LABS: CHLORIDE 114 mEq/L (98-107)
[2019-03-19 07:17] LABS: PHOSPHORUS 3.3 mg/dL (2.5-4.9)
[2019-03-19 08:00] VITALS: BP 95/63
[2019-03-19] MEDS: CITRIC ACID/SODIUM CITRATE SOLN 30ML UDC PO SCH ×3 (09:35→17:23)
[2019-03-19] MEDS: FOLIC ACID 1MG TABLET PO SCH (09:35)
[2019-03-19] MEDS: ALLOPURINOL 100 MG TABLET PO SCH (09:35)
[2019-03-19] MEDS: THIAMINE HCL 100MG TABLET PO SCH (09:35)
[2019-03-19 12:00] VITALS: BP 90/57
[2019-03-19] MEDS ORDERED: MAGNESIUM 4 G PREMIX 100 ML IV NR (12:00)
[2019-03-19] MEDS: LACTOBACILLUS GG CAPSULE PO SCH (12:11)
[2019-03-19 12:28] LABS: HEMOGLOBIN 8.7 g/dL (14.0-18.0)
[2019-03-19 16:00] VITALS: BP 95/58
[2019-03-19] MEDS: CHOLESTYRAMINE/SUCROSE 4G POWDER PACKET PO SCH (18:25)
[2019-03-19 19:56] LABS: HEMATOCRIT 29.6 % (42.0-52.0); HEMOGLOBIN 10.1 g/dL (14.0-18.0)
[2019-03-19 20:00] VITALS: BP 102/70
[2019-03-20] MEDS: DIPHENOXYLATE/ATROPINE 2.5/0.025MG TABLET PO SCH ×2 (01:56→09:12)
[2019-03-20 04:00] VITALS: BP 106/70
[2019-03-20] MEDS: CHLORDIAZEPOXIDE 25MG CAPSULE PO SCH ×2 (06:28→15:06)
[2019-03-20] MEDS: VANCOMYCIN HCL 1000 MG/20 ML ORAL PO SCH ×2 (06:28→12:53)
[2019-03-20] MEDS: CHOLESTYRAMINE/SUCROSE 4G POWDER PACKET PO SCH (06:29)
[2019-03-20] MEDS: OMEPRAZOLE 20MG CAPSULE EXTENDED RELEASE PO SCH (06:29)
[2019-03-20 06:58] LABS: BASOPHILS % 0.7 % (0.0-2.0); EOSINOPHILS % 4.8 % (0.0-5.0); HEMATOCRIT. 24.1 % (42.0-52.0); HEMOGLOBIN. 8.3 g/dL (14.0-18.0); LYMPHOCYTES % 18.4 % (20.0-50.0); MEAN CORPUSCULAR VOLUME 98.4 fL (80.0-94.0); MEAN PLATELET VOLUME 10.3 fl (7.4-10.4); MONOCYTES % 8.8 % (2.0-8.0); NEUTROPHILS % 67.3 % (40.0-76.0); PLATELET 144 x1000/uL (130-400); RED BLOOD CELL COUNT 2.44 mill/uL (4.7-6.1); RED CELL DISTRIBUTION WIDTH 20.6 % (11.6-14.6)
[2019-03-20 07:20] LABS: PHOSPHORUS 3.8 mg/dL (2.5-4.9)
[2019-03-20 08:00] VITALS: BP 98/67
[2019-03-20] MEDS: CITRIC ACID/SODIUM CITRATE SOLN 30ML UDC PO SCH ×2 (08:34→12:51)
[2019-03-20] MEDS: LACTOBACILLUS GG CAPSULE PO SCH (08:35)
[2019-03-20] MEDS: ALLOPURINOL 100 MG TABLET PO SCH (08:35)
[2019-03-20] MEDS: THIAMINE HCL 100MG TABLET PO SCH (08:35)
[2019-03-20] MEDS: FOLIC ACID 1MG TABLET PO SCH (08:35)
[2019-03-20] MEDS ORDERED: WATER IV ONE (08:45)
[2019-03-20] MEDS ORDERED: DEXTROSE 5% IV ONE (08:45)
[2019-03-20] MEDS ORDERED: POTASSIUM ACETATE IV ONE (08:45)
[2019-03-20] MEDS ORDERED: DEXTROSE 5% WATER 1,000 ML IV SCH (08:45)
[2019-03-20] MEDS ORDERED: FAMOTIDINE 20MG TABLET PO SCH (09:00)
[2019-03-20] MEDS ORDERED: MAGNESIUM 2 G PREMIX 50 ML IV SCH (09:00)
[2019-03-20 12:00] VITALS: BP 97/66
[2019-03-20 16:00] VITALS: BP 115/73
[2019-03-20] MEDS ORDERED: MIDODRINE HCL 5MG TABLET PO SCH (17:00)
[2019-03-20 17:25] VITALS: BP 115/73
[2019-03-21 10:11] LABS: SACCHAROMYCES CEREVISIAE IGG <20.0 Units (0.0-24.9); SACCHAROMYCES CEREVISIAE IGM <20.0 Units (0.0-24.9)
[2019-03-21 15:11] LABS: ATYPICAL pANCA <1:20 titer (Neg:<1:20)
== END 2019-03-20 18:20 | disposition home or self-care (01) | DRG 469 ==
LOC: ER 10:10 → 5WST 13:26 → EDBEDREQTM 13:30 → EDBEDREQ 13:30 → ENRESERV 15:29
PROVIDERS: ADMIT Family Medicine; ATTEND Family Medicine
PROC: 30233N1 Transfusion of Nonautologous Red Blood Cells into Peripheral Vein, Percutaneous Approach (ICD-10-PCS; principal; 2019-03-18)
DX: N17.0 Acute kidney failure with tubular necrosis (principal); E43 Unspecified severe protein-calorie malnutrition; D69.59 Other secondary thrombocytopenia; E87.2 Acidosis; E87.8 Other disorders of electrolyte and fluid balance, not elsewhere classified; E83.42 Hypomagnesemia; E83.51 Hypocalcemia; I12.9 Hypertensive chronic kidney disease with stage 1 through stage 4 chronic kidney disease, or unspecified chronic kidney disease; N18.3 Chronic kidney disease, stage 3 (moderate); K86.1 Other chronic pancreatitis; D64.9 Anemia, unspecified; F32.9 Major depressive disorder, single episode, unspecified; K70.30 Alcoholic cirrhosis of liver without ascites; R19.7 Diarrhea, unspecified; F10.21 Alcohol dependence, in remission; E87.6 Hypokalemia; E16.2 Hypoglycemia, unspecified; Z86.19 Personal history of other infectious and parasitic diseases; F17.210 Nicotine dependence, cigarettes, uncomplicated; K44.9 Diaphragmatic hernia without obstruction or gangrene; M10.9 Gout, unspecified; M19.90 Unspecified osteoarthritis, unspecified site; Z59.6 Low income; Z82.49 Family history of ischemic heart disease and other diseases of the circulatory system; Z87.19 Personal history of other diseases of the digestive system; Z68.20 Body mass index [BMI] 20.0-20.9, adult
CPT/HCPCS: 36415; 71045; 80048; 80305; 80320; 82270; 82330; 82607; 82746; 82962; 83735; 83880; 84100; 84484; 84550; 85014; 85018; 86256; 86671; 86850; 86900; 86920; 87493; 90732; 93005; 96361; 96365; 96375; 97162; 99285; J3370; J3411; J3475; J3480; J3490; J7030; J7040; J7050; J7070; P9016; G0480

== ENCOUNTER 2019-03-22 15:31 | Inpatient (IN) | payer MEDICAID ==
[~2019-03-22] VITALS: Ht 172.7 cm; Wt 68.9 kg
[~2019-03-22 15:31] MED LIST changes: -LISI-186 PO
[2019-03-22] MEDS ORDERED: SODIUM CHLORIDE 0.9% 1,000 ML IV ONE (16:00)
[2019-03-22 16:11] LABS: BASOPHILS % 0.8 % (0.0-2.0); HEMATOCRIT. 28.3 % (42.0-52.0); HEMOGLOBIN. 9.5 g/dL (14.0-18.0); LYMPHOCYTES % 9.5 % (20.0-50.0); MEAN CORPUSCULAR HEMOGLOBIN 33.5 pg (28.0-32.0); MEAN CORPUSCULAR VOLUME 99.5 fL (80.0-94.0); MEAN PLATELET VOLUME 9.5 fl (7.4-10.4); MONOCYTES % 9.9 % (2.0-8.0); NEUTROPHILS % 76.8 % (40.0-76.0); PLATELET 218 x1000/uL (130-400); RED BLOOD CELL COUNT 2.84 mill/uL (4.7-6.1); RED CELL DISTRIBUTION WIDTH 21.5 % (11.6-14.6)
[2019-03-22 16:17] LABS: CHLORIDE 107 mEq/L (98-107)
[2019-03-22] MEDS ORDERED: DIPHENOXYLATE/ATROPINE 2.5/0.025MG TABLET PO NR (16:45)
[2019-03-22 20:19] LABS: *BARBITURATES SCREEN URINE NEGATIVE (NEGATIVE); *COCAINE SCREEN URINE NEGATIVE (NEGATIVE)
[2019-03-22 20:20] LABS: *AMPHETAMINES SCREEN URINE NEGATIVE (NEGATIVE); *BENZODIAZEPINES SCREEN URINE PRESUMTIVE POSITIVE (NEGATIVE); CANNABINOID URINE SCREEN NEGATIVE (NEGATIVE); METHADONE URINE SCREEN NEGATIVE (NEGATIVE); OPIATES URINE SCREEN NEGATIVE (NEGATIVE); PHENCYCLIDINE URINE SCREEN NEGATIVE (NEGATIVE)
[2019-03-22 21:12] VITALS: BP 112/73
[2019-03-22] MEDS ORDERED: CLONIDINE 0.1MG TABLET PO PRN (21:45)
[2019-03-22] MEDS ORDERED: ONDANSETRON HCL 4MG/2ML INJ IV PRN (21:45)
[2019-03-22] MEDS ORDERED: HYDROCODONE/ACETAMINOPHEN 5/325MG TABLET PO PRN (21:45)
[2019-03-22] MEDS ORDERED: MAGNESIUM/ALUMINUM HYDROXIDE/SIMETHICONE 30ML UDC PO PRN (21:45)
[2019-03-22] MEDS ORDERED: GUAIFENESIN 200MG/10ML SUGAR FREE UDC PO PRN (21:45)
[2019-03-22] MEDS: DEXT 5%/0.45% NACL KCL 10MEQ/L 1,000 ML IV SCH (23:37)
[2019-03-23] VITALS: BP 97/61
[2019-03-23] MEDS ORDERED: VANC125C5 PO (01:15)
[2019-03-23 04:00] VITALS: BP 108/65
[2019-03-23 07:09] LABS: CHLORIDE 113 mEq/L (98-107)
[2019-03-23 07:17] LABS: BASOPHILS % 0.4 % (0.0-2.0); EOSINOPHILS % 3.5 % (0.0-5.0); HEMATOCRIT. 23.9 % (42.0-52.0); LYMPHOCYTES % 11.3 % (20.0-50.0); MEAN CORPUSCULAR HEMOGLOBIN 33.5 pg (28.0-32.0); MEAN CORPUSCULAR VOLUME 99.7 fL (80.0-94.0); MEAN PLATELET VOLUME 9.6 fl (7.4-10.4); MONOCYTES % 11.2 % (2.0-8.0); NEUTROPHILS % 73.6 % (40.0-76.0); PLATELET 202 x1000/uL (130-400); RED BLOOD CELL COUNT 2.39 mill/uL (4.7-6.1); RED CELL DISTRIBUTION WIDTH 20.6 % (11.6-14.6)
[2019-03-23 07:21] LABS: T4 FREE 1.07 ng/dL (0.76-1.46)
[2019-03-23 08:00] VITALS: BP 98/64
[2019-03-23] MEDS: FOLIC ACID 1MG TABLET PO SCH (08:43)
[2019-03-23] MEDS: THIAMINE HCL 100MG TABLET PO SCH (08:43)
[2019-03-23] MEDS: MULTIVITAMINS,THER W-MINERALS TABLET PO SCH (08:43)
[2019-03-23] MEDS: MIDODRINE HCL 5MG TABLET PO SCH ×3 (11:38→22:25)
[2019-03-23] MEDS: ALLOPURINOL 100 MG TABLET PO SCH (11:38)
[2019-03-23] MEDS: LACTOBACILLUS GG CAPSULE PO SCH (11:56)
[2019-03-23 12:00] VITALS: BP 108/74
[2019-03-23] MEDS: DEXT 5%/0.45% NACL KCL 10MEQ/L 1,000 ML IV SCH (12:46)
[2019-03-23] MEDS: VANCOMYCIN HCL 1000 MG/20 ML ORAL PO SCH ×3 (12:46→23:57)
[2019-03-23] MEDS ORDERED: LORAZEPAM 2MG/ML CPJ IV PRN (13:30)
[2019-03-23 16:00] VITALS: BP 119/65
[2019-03-23 20:00] VITALS: BP 101/65
[2019-03-24] VITALS: BP 105/68
[2019-03-24 04:00] VITALS: BP 99/61
[2019-03-24] MEDS: DEXT 5%/0.45% NACL KCL 10MEQ/L 1,000 ML IV SCH ×3 (04:39→23:51)
[2019-03-24] MEDS: VANCOMYCIN HCL 1000 MG/20 ML ORAL PO SCH ×4 (06:01→23:50)
[2019-03-24] MEDS: MIDODRINE HCL 5MG TABLET PO SCH ×3 (06:01→17:14)
[2019-03-24 08:00] VITALS: BP 90/58
[2019-03-24] MEDS: LACTOBACILLUS GG CAPSULE PO SCH (08:12)
[2019-03-24] MEDS: ALLOPURINOL 100 MG TABLET PO SCH (08:13)
[2019-03-24] MEDS: MULTIVITAMINS,THER W-MINERALS TABLET PO SCH (08:13)
[2019-03-24] MEDS: THIAMINE HCL 100MG TABLET PO SCH (08:13)
[2019-03-24] MEDS: FOLIC ACID 1MG TABLET PO SCH (08:13)
[2019-03-24 12:00] VITALS: BP 96/57
[2019-03-24 16:00] VITALS: BP 119/71
[2019-03-24 20:00] VITALS: BP 132/70
[2019-03-24] MEDS: ACETAMINOPHEN 325MG TABLET PO PRN (23:51)
[2019-03-25] VITALS: BP 128/72
[2019-03-25 04:00] VITALS: BP 119/60
[2019-03-25] MEDS: VANCOMYCIN HCL 1000 MG/20 ML ORAL PO SCH ×4 (06:04→23:33)
[2019-03-25] MEDS: MIDODRINE HCL 5MG TABLET PO SCH ×3 (06:04→20:48)
[2019-03-25 06:43] LABS: BASOPHILS % 0.3 % (0.0-2.0); EOSINOPHILS % 2.1 % (0.0-5.0); HEMATOCRIT. 27.9 % (42.0-52.0); HEMOGLOBIN. 9.2 g/dL (14.0-18.0); LYMPHOCYTES % 12.3 % (20.0-50.0); MEAN CORPUSCULAR HEMOGLOBIN 33.3 pg (28.0-32.0); MEAN PLATELET VOLUME 9.4 fl (7.4-10.4); MONOCYTES % 12.7 % (2.0-8.0); NEUTROPHILS % 72.6 % (40.0-76.0); PLATELET 285 x1000/uL (130-400); RED BLOOD CELL COUNT 2.76 mill/uL (4.7-6.1); RED CELL DISTRIBUTION WIDTH 20.3 % (11.6-14.6)
[2019-03-25 07:05] LABS: CHLORIDE 108 mEq/L (98-107)
[2019-03-25 08:00] VITALS: BP 120/74
[2019-03-25] MEDS: MULTIVITAMINS,THER W-MINERALS TABLET PO SCH (09:10)
[2019-03-25] MEDS: FOLIC ACID 1MG TABLET PO SCH (09:10)
[2019-03-25] MEDS: ALLOPURINOL 100 MG TABLET PO SCH (09:10)
[2019-03-25] MEDS: LACTOBACILLUS GG CAPSULE PO SCH (09:10)
[2019-03-25] MEDS: THIAMINE HCL 100MG TABLET PO SCH (09:10)
[2019-03-25] MEDS: DEXT 5%/0.45% NACL KCL 10MEQ/L 1,000 ML IV SCH ×2 (09:37→11:26)
[2019-03-25] MEDS ORDERED: SODIUM BICARBONATE 8.4% 1 MEQ/ML 50ML SYR IV NR (10:15)
[2019-03-25] MEDS: COLCHICINE 0.6MG TABLET PO SCH (11:25)
[2019-03-25] MEDS ORDERED: POTASSIUM CHLORIDE INJ 40 MEQ in DEXT 5% WATER 250 ML IV NR (11:30)
[2019-03-25] MEDS ORDERED: MAGNESIUM 4 G PREMIX 100 ML IV NR (11:30)
[2019-03-25 12:00] VITALS: BP 118/69
[2019-03-25 16:00] VITALS: BP 111/65
[2019-03-25 20:00] VITALS: BP 90/42
[2019-03-26] VITALS: BP 92/53
[2019-03-26 04:00] VITALS: BP 86/52
[2019-03-26] MEDS: VANCOMYCIN HCL 1000 MG/20 ML ORAL PO SCH ×3 (05:11→17:51)
[2019-03-26] MEDS: MIDODRINE HCL 5MG TABLET PO SCH ×4 (05:18→17:51)
[2019-03-26] MEDS: DEXT 5%/0.45% NACL KCL 10MEQ/L 1,000 ML IV SCH ×3 (05:18→23:49)
[2019-03-26 06:58] LABS: BASOPHILS % 0.5 % (0.0-2.0); EOSINOPHILS % 1.3 % (0.0-5.0); HEMATOCRIT. 22.7 % (42.0-52.0); HEMOGLOBIN. 7.6 g/dL (14.0-18.0); LYMPHOCYTES % 11.3 % (20.0-50.0); MEAN CORPUSCULAR HEMOGLOBIN 33.2 pg (28.0-32.0); MEAN CORPUSCULAR VOLUME 99.4 fL (80.0-94.0); MEAN PLATELET VOLUME 9.4 fl (7.4-10.4); MONOCYTES % 11.4 % (2.0-8.0); NEUTROPHILS % 75.5 % (40.0-76.0); PLATELET 218 x1000/uL (130-400); RED BLOOD CELL COUNT 2.28 mill/uL (4.7-6.1); RED CELL DISTRIBUTION WIDTH 20.1 % (11.6-14.6)
[2019-03-26 07:17] LABS: CHLORIDE 103 mEq/L (98-107)
[2019-03-26 08:00] VITALS: BP 120/76
[2019-03-26] MEDS: COLCHICINE 0.6MG TABLET PO SCH (08:59)
[2019-03-26] MEDS: MULTIVITAMINS,THER W-MINERALS TABLET PO SCH (09:00)
[2019-03-26] MEDS: THIAMINE HCL 100MG TABLET PO SCH (09:00)
[2019-03-26] MEDS: FOLIC ACID 1MG TABLET PO SCH (09:01)
[2019-03-26] MEDS: ALLOPURINOL 100 MG TABLET PO SCH (09:01)
[2019-03-26] MEDS: LACTOBACILLUS GG CAPSULE PO SCH (09:03)
[2019-03-26] MEDS ORDERED: SODIUM BICARBONATE 8.4% 1 MEQ/ML 50ML SYR IV SCH (09:45)
[2019-03-26 12:00] VITALS: BP 118/75
[2019-03-26 16:00] VITALS: BP 120/76
[2019-03-26 20:00] VITALS: BP 99/50
[2019-03-27] VITALS (9 sets, daily range): BP systolic 87–112; BP diastolic 49–66
[2019-03-27] MEDS: VANCOMYCIN HCL 1000 MG/20 ML ORAL PO SCH ×5 (01:40→23:56)
[2019-03-27 06:48] LABS: BASOPHILS % 0.7 % (0.0-2.0); EOSINOPHILS % 1.8 % (0.0-5.0); HEMATOCRIT. 22.2 % (42.0-52.0); HEMOGLOBIN. 7.5 g/dL (14.0-18.0); LYMPHOCYTES % 9.8 % (20.0-50.0); MEAN CORPUSCULAR HEMOGLOBIN 33.3 pg (28.0-32.0); MEAN CORPUSCULAR VOLUME 98.3 fL (80.0-94.0); MONOCYTES % 11.2 % (2.0-8.0); NEUTROPHILS % 76.5 % (40.0-76.0); PLATELET 255 x1000/uL (130-400); RED BLOOD CELL COUNT 2.26 mill/uL (4.7-6.1); RED CELL DISTRIBUTION WIDTH 19.9 % (11.6-14.6)
[2019-03-27 07:17] LABS: CHLORIDE 105 mEq/L (98-107)
[2019-03-27] MEDS: THIAMINE HCL 100MG TABLET PO SCH (08:48)
[2019-03-27] MEDS: FOLIC ACID 1MG TABLET PO SCH (08:48)
[2019-03-27] MEDS: MULTIVITAMINS,THER W-MINERALS TABLET PO SCH (08:48)
[2019-03-27] MEDS: ALLOPURINOL 100 MG TABLET PO SCH (08:48)
[2019-03-27] MEDS: LACTOBACILLUS GG CAPSULE PO SCH (08:48)
[2019-03-27] MEDS: MIDODRINE HCL 5MG TABLET PO SCH ×3 (08:50→17:11)
[2019-03-27] MEDS: DEXT 5%/0.45% NACL KCL 10MEQ/L 1,000 ML IV SCH ×2 (09:04→16:53)
[2019-03-27] MEDS: ACETAMINOPHEN 325MG TABLET PO PRN ×2 (11:21→21:14)
[2019-03-27] MEDS ORDERED: POTASSIUM CHLORIDE 20MEQ TABLET SR PO SCH (12:15)
[2019-03-28 00:49] VITALS: BP 83/50
[2019-03-28] MEDS ORDERED: SODIUM CHLORIDE 0.9% 500 ML IV NR ×2 (02:00→02:30)
[2019-03-28] MEDS: DEXT 5%/0.45% NACL KCL 10MEQ/L 1,000 ML IV SCH ×3 (03:27→15:51)
[2019-03-28 04:00] VITALS: BP 83/54
[2019-03-28] MEDS: VANCOMYCIN HCL 1000 MG/20 ML ORAL PO SCH ×3 (07:22→19:23)
[2019-03-28 07:23] LABS: HEMATOCRIT. 23.3 % (42.0-52.0); HEMOGLOBIN. 7.6 g/dL (14.0-18.0); MEAN CORPUSCULAR HEMOGLOBIN 32.6 pg (28.0-32.0); MEAN CORPUSCULAR VOLUME 99.2 fL (80.0-94.0); MEAN PLATELET VOLUME 9.5 fl (7.4-10.4); PLATELET 183 x1000/uL (130-400); RED BLOOD CELL COUNT 2.35 mill/uL (4.7-6.1); RED CELL DISTRIBUTION WIDTH 19.9 % (11.6-14.6)
[2019-03-28 07:53] VITALS: BP 104/63
[2019-03-28] MEDS: MIDODRINE HCL 5MG TABLET PO SCH ×3 (08:53→16:58)
[2019-03-28] MEDS: ALLOPURINOL 100 MG TABLET PO SCH (08:53)
[2019-03-28] MEDS: MULTIVITAMINS,THER W-MINERALS TABLET PO SCH (08:53)
[2019-03-28] MEDS: FOLIC ACID 1MG TABLET PO SCH (08:53)
[2019-03-28] MEDS: THIAMINE HCL 100MG TABLET PO SCH (08:53)
[2019-03-28 09:27] LABS: CHLORIDE 114 mEq/L (98-107)
[2019-03-28 09:40] LABS: CREATINE KINASE 22 IU/L (39-308)
[2019-03-28] MEDS: PIPERACILLIN/TAZ 3.375G PREMIX 50 ML IV SCH ×3 (11:30→20:01)
[2019-03-28] MEDS: LACTOBACILLUS GG CAPSULE PO SCH (11:40)
[2019-03-28 12:22] VITALS: BP 102/55
[2019-03-28] MEDS ORDERED: MAGNESIUM 1 G PREMIX 100 ML IV NR (13:00)
[2019-03-28] MEDS ORDERED: DIATR MEGLU/DIATRIZOATE SOLN 30ML PO NR (15:30)
[2019-03-28 15:42] LABS: PLATELET ESTIMATE NORMAL
[2019-03-28 16:15] VITALS: BP 116/65
[2019-03-28] MEDS: ACETAMINOPHEN 325MG TABLET PO PRN (19:42)
[2019-03-28 20:00] VITALS: BP 117/68
[2019-03-29] VITALS: BP 120/70
[2019-03-29] MEDS: VANCOMYCIN HCL 1000 MG/20 ML ORAL PO SCH ×4 (00:16→18:08)
[2019-03-29] MEDS: DEXT 5%/0.45% NACL KCL 10MEQ/L 1,000 ML IV SCH ×4 (01:47→23:30)
[2019-03-29] MEDS: PIPERACILLIN/TAZ 3.375G PREMIX 50 ML IV SCH ×2 (03:38→12:28)
[2019-03-29 04:00] VITALS: BP 124/55
[2019-03-29 07:11] LABS: CHLORIDE 114 mEq/L (98-107)
[2019-03-29 08:17] VITALS: BP 85/40
[2019-03-29] MEDS: THIAMINE HCL 100MG TABLET PO SCH (08:43)
[2019-03-29] MEDS: FOLIC ACID 1MG TABLET PO SCH (08:43)
[2019-03-29] MEDS: LACTOBACILLUS GG CAPSULE PO SCH (08:43)
[2019-03-29] MEDS: MIDODRINE HCL 5MG TABLET PO SCH ×3 (08:43→16:42)
[2019-03-29] MEDS: MULTIVITAMINS,THER W-MINERALS TABLET PO SCH (08:43)
[2019-03-29] MEDS: ALLOPURINOL 100 MG TABLET PO SCH (08:43)
[2019-03-29 12:40] VITALS: BP 100/60
[2019-03-29 15:49] VITALS: BP 96/54
[2019-03-29] MEDS: CEFAZOLIN 1000MG PREMIX 50 ML IV SCH (16:29)
[2019-03-29] MEDS ORDERED: CEFAZOLIN 1000MG PREMIX 50 ML IV SCH (18:00)
[2019-03-29 20:00] VITALS: BP 89/48
[2019-03-30] VITALS: BP 90/50
[2019-03-30] MEDS: VANCOMYCIN HCL 1000 MG/20 ML ORAL PO SCH ×3 (00:11→13:07)
[2019-03-30] MEDS: CEFAZOLIN 1000MG PREMIX 50 ML IV SCH ×2 (01:17→15:02)
[2019-03-30 04:00] VITALS: BP 100/80
[2019-03-30] MEDS: DEXT 5%/0.45% NACL KCL 10MEQ/L 1,000 ML IV SCH ×3 (06:14→20:57)
[2019-03-30 08:00] VITALS: BP 126/63
[2019-03-30] MEDS: MULTIVITAMINS,THER W-MINERALS TABLET PO SCH (10:22)
[2019-03-30] MEDS: LACTOBACILLUS GG CAPSULE PO SCH (10:22)
[2019-03-30] MEDS: THIAMINE HCL 100MG TABLET PO SCH (10:22)
[2019-03-30] MEDS: MIDODRINE HCL 5MG TABLET PO SCH ×3 (10:22→19:19)
[2019-03-30] MEDS: FOLIC ACID 1MG TABLET PO SCH (10:23)
[2019-03-30] MEDS: ALLOPURINOL 100 MG TABLET PO SCH (10:23)
[2019-03-30 12:00] VITALS: BP 110/79
[2019-03-30 16:00] VITALS: BP 120/70
[2019-03-30 20:00] VITALS: BP 108/45
[2019-03-31 00:13] VITALS: BP 112/65
[2019-03-31] MEDS: CEFAZOLIN 1000MG PREMIX 50 ML IV SCH ×2 (01:43→13:14)
[2019-03-31 04:00] VITALS: BP 110/64
[2019-03-31] MEDS: DEXT 5%/0.45% NACL KCL 10MEQ/L 1,000 ML IV SCH ×3 (05:12→17:54)
[2019-03-31 08:00] VITALS: BP 118/74
[2019-03-31] MEDS: MIDODRINE HCL 5MG TABLET PO SCH ×3 (10:01→17:54)
[2019-03-31] MEDS: THIAMINE HCL 100MG TABLET PO SCH (10:02)
[2019-03-31] MEDS: MULTIVITAMINS,THER W-MINERALS TABLET PO SCH (10:02)
[2019-03-31] MEDS: LACTOBACILLUS GG CAPSULE PO SCH (10:02)
[2019-03-31] MEDS: FOLIC ACID 1MG TABLET PO SCH (10:02)
[2019-03-31] MEDS: ALLOPURINOL 100 MG TABLET PO SCH (10:04)
[2019-03-31] MEDS: VANCOMYCIN HCL 1000 MG/20 ML ORAL PO SCH ×2 (11:31→17:25)
[2019-03-31 12:00] VITALS: BP 120/79
[2019-03-31 13:34] LABS: BASOPHILS % 0.8 % (0.0-2.0); EOSINOPHILS % 3.3 % (0.0-5.0); HEMATOCRIT. 21.1 % (42.0-52.0); LYMPHOCYTES % 13.4 % (20.0-50.0); MEAN CORPUSCULAR HEMOGLOBIN 32.7 pg (28.0-32.0); MEAN CORPUSCULAR VOLUME 99.1 fL (80.0-94.0); MEAN PLATELET VOLUME 10.3 fl (7.4-10.4); MONOCYTES % 8.7 % (2.0-8.0); NEUTROPHILS % 73.8 % (40.0-76.0); PLATELET 196 x1000/uL (130-400); RED BLOOD CELL COUNT 2.13 mill/uL (4.7-6.1); RED CELL DISTRIBUTION WIDTH 20.3 % (11.6-14.6)
[2019-03-31 13:48] LABS: HEMOGLOBIN. 6.9 g/dL (14.0-18.0)
[2019-03-31 13:54] LABS: CHLORIDE 119 mEq/L (98-107)
[2019-03-31 16:00] VITALS: BP 119/71
[2019-03-31 20:00] VITALS: BP 112/70
[2019-04-01] VITALS (10 sets, daily range): BP systolic 97–131; BP diastolic 51–74
[2019-04-01] MEDS: VANCOMYCIN HCL 1000 MG/20 ML ORAL PO SCH ×5 (02:07→23:35)
[2019-04-01] MEDS: CEFAZOLIN 1000MG PREMIX 50 ML IV SCH ×2 (03:43→14:03)
[2019-04-01] MEDS: DEXT 5%/0.45% NACL KCL 10MEQ/L 1,000 ML IV SCH ×3 (03:44→18:45)
[2019-04-01] MEDS: MULTIVITAMINS,THER W-MINERALS TABLET PO SCH (10:07)
[2019-04-01] MEDS: ALLOPURINOL 100 MG TABLET PO SCH (10:08)
[2019-04-01] MEDS: LACTOBACILLUS GG CAPSULE PO SCH (10:08)
[2019-04-01] MEDS: MIDODRINE HCL 5MG TABLET PO SCH ×3 (10:09→17:09)
[2019-04-01] MEDS: FOLIC ACID 1MG TABLET PO SCH (10:09)
[2019-04-01] MEDS: THIAMINE HCL 100MG TABLET PO SCH (10:11)
[2019-04-01 10:25] LABS: HEMATOCRIT 25.7 % (42.0-52.0); HEMOGLOBIN 8.5 g/dL (14.0-18.0)
[2019-04-01 12:52] LABS: CHLORIDE 118 mEq/L (98-107)
[2019-04-02] VITALS: BP 98/58
[2019-04-02] MEDS: CEFAZOLIN 1000MG PREMIX 50 ML IV SCH ×2 (01:21→14:24)
[2019-04-02] MEDS: DEXT 5%/0.45% NACL KCL 10MEQ/L 1,000 ML IV SCH ×2 (01:22→14:24)
[2019-04-02 04:00] VITALS: BP 103/70
[2019-04-02] MEDS: VANCOMYCIN HCL 1000 MG/20 ML ORAL PO SCH ×3 (06:02→18:06)
[2019-04-02 08:10] VITALS: BP 114/69
[2019-04-02 08:46] LABS: BASOPHILS % 1.7 % (0.0-2.0); EOSINOPHILS % 3.5 % (0.0-5.0); HEMATOCRIT. 25.1 % (42.0-52.0); HEMOGLOBIN. 8.3 g/dL (14.0-18.0); LYMPHOCYTES % 16.7 % (20.0-50.0); MEAN CORPUSCULAR HEMOGLOBIN 31.9 pg (28.0-32.0); MEAN CORPUSCULAR VOLUME 96.9 fL (80.0-94.0); MEAN PLATELET VOLUME 10.4 fl (7.4-10.4); MONOCYTES % 9.7 % (2.0-8.0); NEUTROPHILS % 68.4 % (40.0-76.0); PLATELET 245 x1000/uL (130-400); RED BLOOD CELL COUNT 2.59 mill/uL (4.7-6.1)
[2019-04-02] MEDS: LACTOBACILLUS GG CAPSULE PO SCH (08:51)
[2019-04-02] MEDS: FOLIC ACID 1MG TABLET PO SCH (08:52)
[2019-04-02] MEDS: MULTIVITAMINS,THER W-MINERALS TABLET PO SCH (08:52)
[2019-04-02] MEDS: THIAMINE HCL 100MG TABLET PO SCH (08:52)
[2019-04-02] MEDS: ALLOPURINOL 100 MG TABLET PO SCH (08:52)
[2019-04-02] MEDS: MIDODRINE HCL 5MG TABLET PO SCH ×3 (08:53→16:57)
[2019-04-02 12:51] VITALS: BP 108/72
[2019-04-02 16:00] VITALS: BP 116/59
[2019-04-02 20:00] VITALS: BP 102/42
[2019-04-03] VITALS: BP 115/69
[2019-04-03] MEDS: VANCOMYCIN HCL 1000 MG/20 ML ORAL PO SCH ×3 (00:48→13:46)
[2019-04-03] MEDS: CEFAZOLIN 1000MG PREMIX 50 ML IV SCH (00:48)
[2019-04-03 04:00] VITALS: BP 122/81
[2019-04-03] MEDS: DEXT 5%/0.45% NACL KCL 10MEQ/L 1,000 ML IV SCH ×2 (05:38→10:05)
[2019-04-03 06:15] VITALS: BP 122/81
[2019-04-03 08:00] VITALS: BP 100/60
[2019-04-03] MEDS: MIDODRINE HCL 5MG TABLET PO SCH ×2 (08:54→13:46)
[2019-04-03] MEDS: FOLIC ACID 1MG TABLET PO SCH (08:54)
[2019-04-03] MEDS: ALLOPURINOL 100 MG TABLET PO SCH (08:54)
[2019-04-03] MEDS: LACTOBACILLUS GG CAPSULE PO SCH (08:54)
[2019-04-03] MEDS: MULTIVITAMINS,THER W-MINERALS TABLET PO SCH (08:54)
[2019-04-03] MEDS: THIAMINE HCL 100MG TABLET PO SCH (08:54)
[2019-04-03 12:03] VITALS: BP 102/48
[2019-04-03 12:18] VITALS: BP 102/48
== END 2019-04-03 16:56 | disposition home or self-care (01) | DRG 248 ==
LOC: ER 15:31 → 7WST 19:07 → EDBEDREQ 19:10 → ENRESERV 20:29
PROVIDERS: ADMIT Hospitalist; ATTEND Hospitalist
DX: A04.71 Enterocolitis due to Clostridium difficile, recurrent (principal); E43 Unspecified severe protein-calorie malnutrition; N17.9 Acute kidney failure, unspecified; G90.8 Other disorders of autonomic nervous system; E87.2 Acidosis; R16.0 Hepatomegaly, not elsewhere classified; M06.9 Rheumatoid arthritis, unspecified; M10.9 Gout, unspecified; I12.9 Hypertensive chronic kidney disease with stage 1 through stage 4 chronic kidney disease, or unspecified chronic kidney disease; N18.9 Chronic kidney disease, unspecified; D64.9 Anemia, unspecified; F10.20 Alcohol dependence, uncomplicated; K29.70 Gastritis, unspecified, without bleeding; B96.1 Klebsiella pneumoniae [K. pneumoniae] as the cause of diseases classified elsewhere; S30.810A Abrasion of lower back and pelvis, initial encounter; W18.39XA Other fall on same level, initial encounter; Y93.89 Activity, other specified; Z68.23 Body mass index [BMI] 23.0-23.9, adult; Y92.89 Other specified places as the place of occurrence of the external cause; Y99.8 Other external cause status
CPT/HCPCS: 36415; 71045; 74176; 80048; 80305; 82140; 82550; 83735; 83880; 84134; 84439; 84443; 84484; 85014; 85018; 86850; 86900; 86920; 87077; 87186; 87493; 93005; 96360; 97110; 97116; 97162; 97530; 99285; C1893; J0690; J2543; J3370; J3475; J3480; J3490; J7030; J7040; J7050; J7060; P9016; Q9963

== ENCOUNTER 2019-04-18 18:39 | Emergency (ER) | payer MEDICAID ==
[~2019-04-18] VITALS: Ht 165.1 cm; Wt 73.0 kg
[~2019-04-18 18:39] MED LIST changes: -VANC125C5 MT; +VANC125C5 PO
[2019-04-18] MEDS ORDERED: SODIUM CHLORIDE 0.9% 1,000 ML IV ONE (19:51)
[2019-04-18 20:12] LABS: BASOPHILS % 0.8 % (0.0-2.0); EOSINOPHILS % 5.9 % (0.0-5.0); HEMATOCRIT. 22.6 % (42.0-52.0); HEMOGLOBIN. 7.5 g/dL (14.0-18.0); LYMPHOCYTES % 28.7 % (20.0-50.0); MEAN CORPUSCULAR HEMOGLOBIN 32.6 pg (28.0-32.0); MEAN CORPUSCULAR VOLUME 97.8 fL (80.0-94.0); MONOCYTES % 9.5 % (2.0-8.0); NEUTROPHILS % 55.1 % (40.0-76.0); PLATELET 272 x1000/uL (130-400); RED BLOOD CELL COUNT 2.31 mill/uL (4.7-6.1); RED CELL DISTRIBUTION WIDTH 19.8 % (11.6-14.6)
[2019-04-18 20:15] LABS: CHLORIDE 112 mEq/L (98-107)
[2019-04-18] MEDS ORDERED: CALCIUM CARBONATE 1250MG TABLET (500MG ELEMENTAL CALCIUM) PO ONE (22:15)
[2019-04-18] MEDS ORDERED: POTASSIUM-SODIUM PHOSPHATE POWDER PACKET PO ONE (22:15)
[2019-04-18 23:38] VITALS: BP 113/70
== END 2019-04-18 23:38 | disposition home or self-care (01) ==
LOC: ER 18:39
DX: R19.7 Diarrhea, unspecified (principal); E87.6 Hypokalemia; E83.51 Hypocalcemia; M54.5 Low back pain; M19.90 Unspecified osteoarthritis, unspecified site; M10.9 Gout, unspecified; I10 Essential (primary) hypertension; F10.20 Alcohol dependence, uncomplicated; F17.290 Nicotine dependence, other tobacco product, uncomplicated; Z79.899 Other long term (current) drug therapy; Z59.0 Homelessness; Y90.9 Presence of alcohol in blood, level not specified
CPT/HCPCS: 36415; 80053; 85025; 96360; 99283; 99406; J7030; Z7610

== ENCOUNTER 2019-04-20 11:45 | Emergency (ER) | payer MEDICAID ==
[~2019-04-20] VITALS: Ht 165.1 cm; Wt 55.0 kg
[2019-04-20] MEDS ORDERED: KETOROLAC 60MG/2ML VIAL IM STA (12:03)
[2019-04-20 12:34] LABS: BASOPHILS % 1.2 % (0.0-2.0); EOSINOPHILS % 6.3 % (0.0-5.0); HEMATOCRIT. 25.2 % (42.0-52.0); HEMOGLOBIN. 8.4 g/dL (14.0-18.0); LYMPHOCYTES % 33.3 % (20.0-50.0); MEAN CORPUSCULAR VOLUME 99.7 fL (80.0-94.0); MEAN PLATELET VOLUME 7.7 fl (7.4-10.4); MONOCYTES % 10.3 % (2.0-8.0); NEUTROPHILS % 48.9 % (40.0-76.0); PLATELET 285 x1000/uL (130-400); RED BLOOD CELL COUNT 2.53 mill/uL (4.7-6.1)
[2019-04-20 12:44] LABS: CHLORIDE 111 mEq/L (98-107)
[2019-04-20 12:48] LABS: ETHANOL BLOOD < 10 mg/dL
[2019-04-20 13:00] LABS: INR 1.2; PROTHROMBIN TIME 12.3 sec (9.6-11.0)
[2019-04-20 14:54] VITALS: BP 101/68
== END 2019-04-20 15:41 | disposition home or self-care (01) ==
LOC: ER 11:45
DX: S80.02XA Contusion of left knee, initial encounter (principal); S80.01XA Contusion of right knee, initial encounter; I10 Essential (primary) hypertension; M19.90 Unspecified osteoarthritis, unspecified site; F10.21 Alcohol dependence, in remission; W01.0XXA Fall on same level from slipping, tripping and stumbling without subsequent striking against object, initial encounter; Y93.89 Activity, other specified; Y92.012 Bathroom of single-family (private) house as the place of occurrence of the external cause
CPT/HCPCS: 36415; 80053; 80320; 83690; 85025; 85610; 96372; 99283; J1885; G0480

== ENCOUNTER 2019-05-29 15:42 | Emergency (ER) | payer MEDICAID ==
[~2019-05-29] VITALS: Ht 172.7 cm; Wt 72.0 kg
[2019-05-29] MEDS ORDERED: HYDROCODONE/ACETAMINOPHEN 5/325MG TABLET PO ONE (18:45)
[2019-05-29] MEDS ORDERED: IBUPROFEN 600MG TABLET PO ONE (18:45)
[2019-05-30] MEDS ORDERED: IBUPROFEN 600MG TABLET PO ONE (10:15)
[2019-05-30] MEDS ORDERED: LISINOPRIL 5MG TABLET PO ONE (10:15)
[2019-05-30 16:18] VITALS: BP 95/62
== END 2019-05-30 16:35 | disposition home or self-care (01) ==
LOC: ER 15:42
DX: M06.842 Other specified rheumatoid arthritis, left hand (principal); M06.841 Other specified rheumatoid arthritis, right hand; M06.872 Other specified rheumatoid arthritis, left ankle and foot; M06.871 Other specified rheumatoid arthritis, right ankle and foot; Z59.0 Homelessness
CPT/HCPCS: 99284